=== PATIENT | male | born 1960 | race African-American/Black ===

== ENCOUNTER 2016-09-02 11:24 | Inpatient (IN) | payer MEDICARE, MEDICAID ==
[2016-09-02] VITALS (9 sets, daily range): BP systolic 110–146; BP diastolic 74–92
[~2016-09-02] VITALS: Ht 172.7 cm; Wt 51.0 kg
[~2016-09-02 11:24] MED LIST: ANTI-FUNGAL12 EX; DEXILANT60 MG OR; DILANTIN100 MG PO; DOCUSATE SOD100 M2 PO; FOLIC ACID1 MG PO; MIRALAX3350 NF PO; OMEPRAZOLE20 M2 PO; ONDANSETRON4 MG PO; VITAMIN B 12100 MCG PO; VITAMIN B-121000 MCG PO
[2016-09-02] MEDS ORDERED: COLACE100 MG PO ×2 (11:50→15:37)
[2016-09-02] MEDS ORDERED: LACTULOSE PO (11:51)
[2016-09-02 12:03] LABS: HEMATOCRIT 25.4 % (39.0-50.0); HEMOGLOBIN 7.3 g/dl (14.0-18.0); IMMATURE GRANULOCYTES 0.3 % (0.0-1.0); MEAN CELL VOLUME 74.5 fL CALC (80.0-100.0); MEAN CORPUSCULAR HGB 21.4 pG CALC (26.0-32.0); MEAN CORPUSCULAR HGB CONC 28.7 g/L CALC (32.0-36.0); NEUT# 8.09 thou/uL (1.82-7.42); RED BLOOD COUNT 3.41 mill/uL (4.70-6.10); RED CELL DISTRI WIDTH 17.9 % (11.5-15.5)
[2016-09-02 12:13] LABS: ALBUMIN 4.5 g/dL (3.2-5.0); ALKALINE PHOSPHATASE 106 u/l (38-126); AMYLASE 70 u/l (30-110); ANION GAP 16 (6-22 (CALC)); BILIRUBIN, TOTAL 0.3 mg/dL (0.0-1.4); BUN 10 mg/dL (9-20); BUN/CREATININE RATIO 13 (12-20 (CALC)); CALCIUM 9.4 mg/dL (8.4-10.2); CARBON DIOXIDE 28 mmol/l (22-30); CHLORIDE 102 mmol/l (95-108); CREATININE 0.8 mg/dL (0.7-1.3); GFR > 60 ML/MIN (>=60 (CALC)); GFR FOR AFR.AMER. > 60 ML/MIN (>=60 (CALC)); GLUCOSE 100 mg/dL (75-110); LIPASE 75 u/l (23-300); POTASSIUM 4.1 mmol/l (3.5-5.1); SGOT/AST 15 u/l (17-59); SGPT/ALT 23 u/l (21-72); SODIUM 142 mmol/l (137-146); TOTAL PROTEIN 7.7 g/dL (6.3-8.2)
[2016-09-02] MEDS ORDERED: EQ MAGNESIUM CI1 SOL PO (15:37)
[2016-09-02] MEDS ORDERED: MIRALAX3350 N1 PO (15:37)
[2016-09-03 01:28] LABS: HEMATOCRIT 32.2 % (39.0-50.0); HEMOGLOBIN 10.1 g/dl (14.0-18.0)
[2016-09-03 05:20] VITALS: BP 125/79
[2016-09-03 06:46] LABS: HEMOGLOBIN 9.8 g/dl (14.0-18.0)
[2016-09-03 06:47] LABS: HEMATOCRIT 31.8 % (39.0-50.0); HEMOGLOBIN 9.9 g/dl (14.0-18.0); IMMATURE GRANULOCYTES 0.4 % (0.0-1.0); MEAN CELL VOLUME 77.9 fL CALC (80.0-100.0); MEAN CORPUSCULAR HGB 24.3 pG CALC (26.0-32.0); MEAN CORPUSCULAR HGB CONC 31.1 g/L CALC (32.0-36.0); NEUT# 7.01 thou/uL (1.82-7.42); RED BLOOD COUNT 4.08 mill/uL (4.70-6.10); RED CELL DISTRI WIDTH 19.2 % (11.5-15.5)
[2016-09-03 07:06] LABS: ANION GAP 14 (6-22 (CALC)); BUN 11 mg/dL (9-20); BUN/CREATININE RATIO 14 (12-20 (CALC)); CALCIUM 8.9 mg/dL (8.4-10.2); CARBON DIOXIDE 28 mmol/l (22-30); CHLORIDE 105 mmol/l (95-108); CREATININE 0.7 mg/dL (0.7-1.3); GFR > 60 ML/MIN (>=60 (CALC)); GFR FOR AFR.AMER. > 60 ML/MIN (>=60 (CALC)); GLUCOSE 81 mg/dL (75-110); POTASSIUM 3.9 mmol/l (3.5-5.1); SODIUM 143 mmol/l (137-146)
[2016-09-03 08:30] VITALS: BP 154/90
[2016-09-03 11:00] VITALS: BP 144/84
[2016-09-03 15:01] VITALS: BP 145/91
[2016-09-03 17:51] LABS: HEMATOCRIT 34.1 % (39.0-50.0); HEMOGLOBIN 10.5 g/dl (14.0-18.0)
[2016-09-03 19:10] VITALS: BP 124/82
[2016-09-03 21:08] LABS: URINE BILIRUBIN - DIPSTICK NEGATIVE (NEGATIVE); URINE BLOOD DIPSTICK NEGATIVE (NEGATIVE); URINE CLARITY CLEAR; URINE COLOR YELLOW; URINE GLUCOSE - DIPSTICK NEGATIVE (NEGATIVE); URINE KETONE 15 mg/dL (NEGATIVE); URINE LEUK ESTERASE NEGATIVE (NEGATIVE); URINE NITRITE - DIPSTICK NEGATIVE (Negative); URINE PROTEIN - DIPSTICK NEGATIVE (NEG-TRACE)
[2016-09-04] VITALS: BP 137/83
[2016-09-04 04:27] VITALS: BP 118/72
[2016-09-04 06:13] LABS: HEMATOCRIT 32.7 % (39.0-50.0); IMMATURE GRANULOCYTES 0.3 % (0.0-1.0); MEAN CELL VOLUME 77.5 fL CALC (80.0-100.0); MEAN CORPUSCULAR HGB 23.7 pG CALC (26.0-32.0); MEAN CORPUSCULAR HGB CONC 30.6 g/L CALC (32.0-36.0); NEUT# 8.16 thou/uL (1.82-7.42); RED BLOOD COUNT 4.22 mill/uL (4.70-6.10); RED CELL DISTRI WIDTH 20.2 % (11.5-15.5)
[2016-09-04 06:28] LABS: ANION GAP 13 (6-22 (CALC)); BUN 9 mg/dL (9-20); BUN/CREATININE RATIO 14 (12-20 (CALC)); CALCIUM 8.8 mg/dL (8.4-10.2); CARBON DIOXIDE 27 mmol/l (22-30); CHLORIDE 104 mmol/l (95-108); CREATININE 0.7 mg/dL (0.7-1.3); GFR > 60 ML/MIN (>=60 (CALC)); GFR FOR AFR.AMER. > 60 ML/MIN (>=60 (CALC)); GLUCOSE 82 mg/dL (75-110); POTASSIUM 3.7 mmol/l (3.5-5.1); SODIUM 141 mmol/l (137-146)
[2016-09-04 09:41] VITALS: BP 110/77
[2016-09-04] MEDS ORDERED: FERROUS SULF325 M2 PO (12:25)
[2016-09-04] MEDS ORDERED: MIRALAX3350 NF PO (12:25)
[2016-09-04] MEDS ORDERED: COLACE100 MG PO (12:25)
[2016-09-04 13:00] VITALS: BP 117/78
== END 2016-09-04 14:14 | disposition short-term general hospital (02) | DRG 812 ==
LOC: ENPENDDIS → ED 11:24 → ED-I 15:40 → ED 16:30 → MS2 16:31
PROVIDERS: Emergency Medicine; Internal Medicine; ADMIT Internal Medicine; ATTEND Internal Medicine
PROC: 30233N1 Transfusion of Nonautologous Red Blood Cells into Peripheral Vein, Percutaneous Approach (ICD-10-PCS; principal; 2016-09-02)
PROC: 30233N1 Transfusion of Nonautologous Red Blood Cells into Peripheral Vein, Percutaneous Approach (ICD-10-PCS; 2016-09-02)
PROC: 05HB33Z Insertion of Infusion Device into Right Basilic Vein, Percutaneous Approach (ICD-10-PCS; 2016-09-02)
PROC: B54MZZA Ultrasonography of Right Upper Extremity Veins, Guidance (ICD-10-PCS; 2016-09-02)
DX: D50.9 Iron deficiency anemia, unspecified (principal); F72 Severe intellectual disabilities; K92.2 Gastrointestinal hemorrhage, unspecified; K59.09 Other constipation; G40.909 Epilepsy, unspecified, not intractable, without status epilepticus; K44.9 Diaphragmatic hernia without obstruction or gangrene
CPT/HCPCS: J1756; P9016; S0164

== ENCOUNTER 2016-11-08 10:29 | Day surgery (SDC) | payer MEDICARE, MEDICAID ==
[~2016-11-08] VITALS: Ht 167.6 cm; Wt 54.4 kg
[~2016-11-08 10:29] MED LIST changes: +COLACE100 MG PO; +EQ MAGNESIUM CI1 SOL PO; +FERROUS SULF325 M2 PO; +GAVILA1 PO; +LACTULOSE PO; +MIRALAX3350 N1 PO
[2016-11-08 13:15] VITALS: BP 127/78
== END 2016-11-08 13:35 | disposition home or self-care (01) ==
LOC: ENDO 10:29 → ORM 11:15 → ENDO 11:15
PROVIDERS: ATTEND Internal Medicine Gastroenterology
PROC: 0DB48ZX Excision of Esophagogastric Junction, Via Natural or Artificial Opening Endoscopic, Diagnostic (ICD-10-PCS; principal; 2016-11-08)
PROC: 0DB78ZX Excision of Stomach, Pylorus, Via Natural or Artificial Opening Endoscopic, Diagnostic (ICD-10-PCS; 2016-11-08)
PROC: 0DB98ZX Excision of Duodenum, Via Natural or Artificial Opening Endoscopic, Diagnostic (ICD-10-PCS; 2016-11-08)
DX: D50.9 Iron deficiency anemia, unspecified (principal); R11.2 Nausea with vomiting, unspecified; K31.7 Polyp of stomach and duodenum; K29.80 Duodenitis without bleeding; K29.50 Unspecified chronic gastritis without bleeding; K21.0 Gastro-esophageal reflux disease with esophagitis; K44.9 Diaphragmatic hernia without obstruction or gangrene; F79 Unspecified intellectual disabilities

== ENCOUNTER 2016-11-10 10:34 | Emergency (ER) | payer MEDICARE, MEDICAID ==
[~2016-11-10] VITALS: Ht 167.6 cm; Wt 64.0 kg
[2016-11-10] MEDS ORDERED: ZOFRAN ODT4 MG PO (11:12)
[2016-11-10 12:06] LABS: HEMATOCRIT 38.6 % (39.0-50.0); IMMATURE GRANULOCYTES 0.4 % (0.0-1.0); MEAN CELL VOLUME 83.2 fL CALC (80.0-100.0); MEAN CORPUSCULAR HGB 25.9 pG CALC (26.0-32.0); MEAN CORPUSCULAR HGB CONC 31.1 g/L CALC (32.0-36.0); NEUT# 16.36 thou/uL (1.82-7.42); RED BLOOD COUNT 4.64 mill/uL (4.70-6.10)
[2016-11-10 12:13] LABS: ALBUMIN 4.6 g/dL (3.2-5.0); ALKALINE PHOSPHATASE 130 u/l (38-126); AMYLASE 87 u/l (30-110); ANION GAP 18 (6-22 (CALC)); BILIRUBIN, TOTAL 0.9 mg/dL (0.0-1.4); BUN 21 mg/dL (9-20); BUN/CREATININE RATIO 34 (12-20 (CALC)); CALCIUM 9.1 mg/dL (8.4-10.2); CARBON DIOXIDE 25 mmol/l (22-30); CHLORIDE 101 mmol/l (95-108); CREATININE 0.6 mg/dL (0.7-1.3); GFR > 60 ML/MIN (>=60 (CALC)); GFR FOR AFR.AMER. > 60 ML/MIN (>=60 (CALC)); GLUCOSE 140 mg/dL (75-110); LIPASE 36 u/l (23-300); SGOT/AST 52 u/l (17-59); SGPT/ALT 7 u/l (21-72); SODIUM 139 mmol/l (137-146); TOTAL PROTEIN 8.4 g/dL (6.3-8.2)
[2016-11-10 12:15] LABS: POTASSIUM 5.2 mmol/l (3.5-5.1)
[2016-11-10 12:20] LABS: INTERNATIONAL NORMALIZED RATIO 1.1 RATIO (0.7-1.3); PROTHROMBIN TIME 12.6 SECONDS (9.0-12.5)
[2016-11-10 12:25] LABS: MYOGLOBIN 15 ng/mL (0 - 121)
[2016-11-10 14:10] VITALS: BP 120/76
== END 2016-11-10 14:10 | disposition short-term general hospital (02) ==
LOC: ED 10:34
PROVIDERS: Emergency Medicine
DX: K92.0 Hematemesis (principal); F79 Unspecified intellectual disabilities; K21.9 Gastro-esophageal reflux disease without esophagitis; G40.909 Epilepsy, unspecified, not intractable, without status epilepticus
CPT/HCPCS: S0164

== ENCOUNTER 2017-02-19 10:55 | Emergency (ER) | payer MEDICARE, MEDICAID ==
[~2017-02-19] VITALS: Ht 167.6 cm; Wt 48.2 kg
[~2017-02-19 10:55] MED LIST changes: +ZOFRAN ODT4 MG PO
[2017-02-19] MEDS ORDERED: COLACE100 MG PO (11:07)
[2017-02-19] MEDS ORDERED: LOTRISONE CREAM15 GM EX (11:50)
[2017-02-19 12:10] VITALS: BP 120/84
== END 2017-02-19 12:10 | disposition home or self-care (01) ==
LOC: ED 10:55
DX: B36.9 Superficial mycosis, unspecified (principal); N48.89 Other specified disorders of penis; Z98.890 Other specified postprocedural states

== ENCOUNTER 2017-02-26 09:08 | Emergency (ER) | payer MEDICARE, MEDICAID ==
[~2017-02-26] VITALS: Ht 167.6 cm; Wt 48.0 kg
[~2017-02-26 09:08] MED LIST changes: +LOTRISONE CREAM15 GM EX
[2017-02-26 09:53] VITALS: BP 127/84
== END 2017-02-26 09:57 | disposition home or self-care (01) ==
LOC: ED 09:08
DX: B37.49 Other urogenital candidiasis (principal); N48.29 Other inflammatory disorders of penis

== ENCOUNTER 2017-05-01 12:14 | Emergency (ER) | payer MEDICARE, MEDICAID ==
[~2017-05-01] VITALS: Ht 167.6 cm; Wt 40.0 kg
[2017-05-01] MEDS ORDERED: PANTOPRAZOLE SO40 MG PO (14:08)
[2017-05-01 14:35] LABS: INFLUENZA A NONE DETECTED (NONE DETECT); INFLUENZA B NONE DETECTED (NONE DETECT)
[2017-05-01 14:39] LABS: IMMATURE GRANULOCYTES 0.4 % (0.0-1.0); MEAN CELL VOLUME 66.7 fL CALC (80.0-100.0); MEAN CORPUSCULAR HGB 18.2 pG CALC (26.0-32.0); MEAN CORPUSCULAR HGB CONC 27.3 g/L CALC (32.0-36.0); PLATELET COUNT 349 thou/uL (130-400); RED BLOOD COUNT 2.97 mill/uL (4.70-6.10); RED CELL DISTRI WIDTH 18.2 % (11.5-15.5)
[2017-05-01 14:59] LABS: HEMATOCRIT 19.8 % (39.0-50.0); HEMOGLOBIN 5.4 g/dl (14.0-18.0)
[2017-05-01 15:00] LABS: ALBUMIN 3.8 g/dL (3.2-5.0); ALKALINE PHOSPHATASE 144 u/l (38-126); ANION GAP 15 (6-22 (CALC)); BUN 15 mg/dL (9-20); BUN/CREATININE RATIO 24 (12-20 (CALC)); CARBON DIOXIDE 27 mmol/l (22-30); CHLORIDE 102 mmol/l (95-108); CREATININE 0.6 mg/dL (0.7-1.3); GFR > 60 ML/MIN (>=60 (CALC)); GFR FOR AFR.AMER. > 60 ML/MIN (>=60 (CALC)); LIPASE 148 u/l (23-300); MANUAL DIFFERENTIAL YES; POTASSIUM 4.2 mmol/l (3.5-5.1); SGOT/AST 18 u/l (17-59); SGPT/ALT 24 u/l (21-72); SODIUM 140 mmol/l (137-146); TOTAL PROTEIN 6.6 g/dL (6.3-8.2)
[2017-05-01 15:01] LABS: HYPOCHROMIA MARKED; MICROCYTOSIS MODERATE
[2017-05-01 15:02] LABS: ANISOCYTOSIS MODERATE
[2017-05-01 17:03] VITALS: BP 109/73
[2017-05-01 17:50] VITALS: BP 111/73
[2017-05-01 19:03] VITALS: BP 107/78
[2017-05-01 19:16] VITALS: BP 107/78
== END 2017-05-01 19:16 | disposition short-term general hospital (02) ==
LOC: ED 12:14
PROVIDERS: Family Medicine
PROC: 30233N1 Transfusion of Nonautologous Red Blood Cells into Peripheral Vein, Percutaneous Approach (ICD-10-PCS; principal; 2017-05-01)
DX: K92.2 Gastrointestinal hemorrhage, unspecified (principal); G40.909 Epilepsy, unspecified, not intractable, without status epilepticus; R62.50 Unspecified lack of expected normal physiological development in childhood; D64.9 Anemia, unspecified
CPT/HCPCS: P9016; S0164

== ENCOUNTER 2017-10-10 09:43 | Day surgery (SDC) | payer MEDICARE, MEDICAID ==
[~2017-10-10 09:43] MED LIST changes: +FERREX 150150 MG PO; +PANTOPRAZOLE SO40 MG PO
[2017-10-10] MEDS ORDERED: FERREX 150150 MG PO (10:29)
[2017-10-10] MEDS ORDERED: GLYCOLAX PO (10:30)
[2017-10-10] MEDS ORDERED: ENSURE PO (10:31)
[2017-10-10 12:58] VITALS: BP 101/85
== END 2017-10-10 12:30 | disposition short-term general hospital (02) ==
LOC: ENDO 09:43 → ORM 11:30 → ENDO 12:05
PROVIDERS: ATTEND Internal Medicine Gastroenterology
PROC: 0DB48ZX Excision of Esophagogastric Junction, Via Natural or Artificial Opening Endoscopic, Diagnostic (ICD-10-PCS; principal; 2017-10-10)
DX: D50.9 Iron deficiency anemia, unspecified (principal); R63.4 Abnormal weight loss; K29.70 Gastritis, unspecified, without bleeding; K21.0 Gastro-esophageal reflux disease with esophagitis; K44.9 Diaphragmatic hernia without obstruction or gangrene; K31.89 Other diseases of stomach and duodenum; F79 Unspecified intellectual disabilities; K31.7 Polyp of stomach and duodenum

== ENCOUNTER 2019-04-12 | Emergency (ER) | payer MEDICARE, MEDICAID ==
[~2019-04-12] MED LIST changes: +ENSURE PO; +GLYCOLAX PO; +PANTOPRAZOLE SO20 M1 PO; -PANTOPRAZOLE SO40 MG PO
[2019-04-12 13:02] LABS: IMMATURE GRANULOCYTES 0.4 % (0.0-5.0); MEAN CELL VOLUME 76.5 fL CALC (80.0-100.0); MEAN CORPUSCULAR HGB 20.6 pG CALC (26.0-32.0); MEAN CORPUSCULAR HGB CONC 26.9 g/L CALC (32.0-36.0); NEUT# 4.9 thou/uL (1.82-7.42); RED BLOOD COUNT 2.38 mill/uL (4.70-6.10); RED CELL DISTRI WIDTH 19.9 % (11.5-15.5)
[2019-04-12 13:09] LABS: HEMATOCRIT 18.2 % (39.0-50.0); HEMOGLOBIN 4.9 g/dl (14.0-18.0)
[2019-04-12 13:14] LABS: ALBUMIN 3.8 g/dL (3.2-5.0); ALKALINE PHOSPHATASE 129 u/l (38-126); ANION GAP 14 (6-22 (CALC)); BILIRUBIN, TOTAL 0.2 mg/dL (0.0-1.4); BUN 14 mg/dL (9-20); BUN/CREATININE RATIO 22 (12-20 (CALC)); CARBON DIOXIDE 26 mmol/l (22-30); CHLORIDE 102 mmol/l (95-108); CREATININE 0.6 mg/dL (0.7-1.3); GFR > 60 ML/MIN (>=60 (CALC)); GFR FOR AFR.AMER. > 60 ML/MIN (>=60 (CALC)); POTASSIUM 3.8 mmol/l (3.5-5.1); SGOT/AST 15 u/l (17-59); SODIUM 138 mmol/l (137-146); TOTAL PROTEIN 7.1 g/dL (6.3-8.2)
[2019-04-12 13:19] LABS: INTERNATIONAL NORMALIZED RATIO 1.2 RATIO (0.7-1.3); PROTHROMBIN TIME 12.3 SECONDS (9.0-12.5)
[2019-04-12 14:49] VITALS: BP 112/56
[2019-04-12 15:05] VITALS: BP 121/79
[2019-04-12 15:24] VITALS: BP 108/67
[2019-04-12 16:01] VITALS: BP 107/73
[2019-04-12 17:05] VITALS: BP 113/63
[2019-04-12 17:25] VITALS: BP 113/63
[2019-05-14] MEDS ORDERED: ENSURE PO (11:42)
[2019-05-14] MEDS ORDERED: INJECTAFER750 MG/15 IJ (11:51)
== END 2019-04-12 17:30 | disposition short-term general hospital (02) ==
PROVIDERS: Emergency Medicine
PROC: 30233N1 Transfusion of Nonautologous Red Blood Cells into Peripheral Vein, Percutaneous Approach (ICD-10-PCS; principal; 2019-04-12)
PROC: 30233N1 Transfusion of Nonautologous Red Blood Cells into Peripheral Vein, Percutaneous Approach (ICD-10-PCS; 2019-04-12)
DX: K92.2 Gastrointestinal hemorrhage, unspecified (principal); D50.0 Iron deficiency anemia secondary to blood loss (chronic); G40.909 Epilepsy, unspecified, not intractable, without status epilepticus; R62.50 Unspecified lack of expected normal physiological development in childhood; E78.00 Pure hypercholesterolemia, unspecified
CPT/HCPCS: P9016; S0164

== ENCOUNTER 2019-05-21 | Day surgery (SDC) | payer MEDICARE, MEDICAID ==
[~2019-05-21] MED LIST changes: +INJECTAFER750 MG/15 IJ
== END 2019-05-21 12:37 | disposition home or self-care (01) ==
PROC: 0DBN8ZX Excision of Sigmoid Colon, Via Natural or Artificial Opening Endoscopic, Diagnostic (ICD-10-PCS; principal; 2019-05-21)
PROC: 0DB48ZX Excision of Esophagogastric Junction, Via Natural or Artificial Opening Endoscopic, Diagnostic (ICD-10-PCS; 2019-05-21)
PROC: 0DB78ZX Excision of Stomach, Pylorus, Via Natural or Artificial Opening Endoscopic, Diagnostic (ICD-10-PCS; 2019-05-21)
DX: D12.5 Benign neoplasm of sigmoid colon (principal); K64.8 Other hemorrhoids; K64.4 Residual hemorrhoidal skin tags; K21.0 Gastro-esophageal reflux disease with esophagitis; Q39.9 Congenital malformation of esophagus, unspecified; K29.61 Other gastritis with bleeding; Q40.2 Other specified congenital malformations of stomach; K44.9 Diaphragmatic hernia without obstruction or gangrene; Q39.8 Other congenital malformations of esophagus; D50.9 Iron deficiency anemia, unspecified; F03.90 Unspecified dementia, unspecified severity, without behavioral disturbance, psychotic disturbance, mood disturbance, and anxiety; Z79.899 Other long term (current) drug therapy

== ENCOUNTER 2019-10-19 11:14 | Inpatient (IN) | payer MEDICARE, MEDICAID ==
[~2019-10-19] VITALS: Ht 167.6 cm; Wt 52.0 kg
--- NOTE | 2019-10-19 11:19 | NUR ---
PT TO ROOM VIA WC WITH CAREGIVER
[2019-10-19 12:14] LABS: HEMATOCRIT 36.3 % (39.0-50.0); IMMATURE GRANULOCYTES 0.7 % (0.0-5.0); MEAN CELL VOLUME 89.2 fL CALC (80.0-100.0); MEAN CORPUSCULAR HGB CONC 30.3 g/dL CAL (32.0-36.0); NEUT# 12.99 thou/uL (1.82-7.42); RED BLOOD COUNT 4.07 mill/uL (4.70-6.10); RED CELL DISTRI WIDTH 20.5 % (11.5-15.5)
--- NOTE | 2019-10-19 12:19 | NUR ---
PT IS RESTING IN ROOMON STRETCHER. NO DISTRESS NOTED
[2019-10-19 12:29] LABS: ALBUMIN 3.9 g/dL (3.2-5.0); ALKALINE PHOSPHATASE 174 u/l (38-126); BUN 16 mg/dL (9-20); BUN/CREATININE RATIO 13 (12-20 (CALC)); CARBON DIOXIDE 27 mmol/l (22-30); CHLORIDE 103 mmol/l (95-108); CREATININE 1.3 mg/dL (0.7-1.3); GFR 56 ML/MIN (>=60 (CALC)); GFR FOR AFR.AMER. > 60 ML/MIN (>=60 (CALC)); SODIUM 138 mmol/l (137-146); TOTAL PROTEIN 7.5 g/dL (6.3-8.2)
[2019-10-19 12:48] LABS: ANION GAP 12 (6-22 (CALC)); BILIRUBIN, TOTAL 0.5 mg/dL (0.0-1.4); C-REACTIVE PROTEIN > 27.0 mg/dL (0-0.9); POTASSIUM 3.5 mmol/l (3.5-5.1); SGOT/AST 43 u/l (17-59)
--- NOTE | 2019-10-19 13:10 | NUR ---
PT IS RESTING IN ROOM. CAREGIVER IS AWARE OF THE POSSIBLE ADMISSION. NO DISTRESS NOTED.
--- NOTE | 2019-10-19 14:10 | NUR ---
PT IS RESTING AND CALM. NO DISTRESS NOTED
--- NOTE | 2019-10-19 15:10 | NUR ---
PT IS RESTING AND CALM.
--- NOTE | 2019-10-19 15:59 | NUR ---
Admission Note Report Given to: SYLVESTER Transported by: Wheelchair X Stretcher Transported with: X Nurse Transporter X Patent IV O2 Supervisor Landscape Location: ICU X MS2
--- NOTE | 2019-10-19 16:15 | NUR ---
PT ARRIVED TO MED/SURG ROOM 285 IN STABLE CONDITION VIA STRETCHER ACCOMPANIED BY JUANJOSE PENA;PT AMBULATED WITH X2 PERSON ASSIST TO BEDSIDE;VS AND WT OBTAINED BY HAYLEY CHAPARRO;CURRENT TEMP 104.0 AND PT NOTED TO BE AGITATED,[place] ANRP NOTIFIED;PT DOES HAVE SOME DEVELOPMENTAL DELAYS;PT NON-VERBAL BUT WILL SHAKE HEAD "YES" OR "NO" WHEN ASKED QUESTIONS;PT DENIES ANY CURRENT PAIN,PAIN SCALE AND REPORTING EDUCATED;RESPIRATIONS SHALLOW ON RA,DIMINISHED LUNG SOUNDS NOTED;NON-PRODUCTIVE COUGH ALSO NOTED AT TIMES;ABDOMEN DISTENDED/SOFT ON PALPATION AND ACTIVE IN ALL 4 QUADRANTS, LAST BM UNKNOWN;WEAK PEDAL PULSES;SKIN INTACT;#20G TO LAC FLUSHED AND PATENT, NS STARTED @ 100ML/HR,SITE APPEARS HEALTHY;SEIZURE PRECAUTIONS IN PLACE FOR HX OF SEIZURES;CONDOM CATHETER APPLIED PER ANRP;PT DENIES ANY ADDITIONAL NEEDS AT THIS TIME AND IS ENCOURAGED TO CALL FOR ASSISTANCE IF NEEDED;FALL PRECAUTIONS IN PLACE WITH BED IN THE LOWEST POSITION,BED ALARM ON AND SITTER AT BEDSIDE;CALL LIGHT IN REACH;WILL CONTINUE TO MONITOR
[2019-10-19 16:30] VITALS: BP 116/73
--- NOTE | 2019-10-19 17:50 | NUR ---
TEMP RE-CHECKED AT THIS TIME RESULTING IN 100.7;PT SEEMS CALMER AND MORE RELAXED;RESPIRATIONS REMAIN EVEN AND UNLABORED ON RA;PT NODS HEAD "NO" WHEN ASKED ABOUT PAIN;IV FLUIDS CONTINUE TO INFUSE WITH EASE TO RAC;ALL SAFETY PRECAUTIONS IN PLACE WITH SITTER AT BEDSIDE AND BED ALARM ON FOR SAFETY;CALL LIGHT IN REACH;WILL CONTINUE TO MONITOR
[2019-10-19 18:37] LABS: URINE BILIRUBIN - DIPSTICK NEGATIVE (NEGATIVE); URINE BLOOD DIPSTICK MODERATE (NEGATIVE); URINE COLOR YELLOW; URINE GLUCOSE - DIPSTICK NEGATIVE (NEGATIVE); URINE KETONE NEGATIVE (NEGATIVE); URINE NITRITE - DIPSTICK NEGATIVE (Negative); URINE PROTEIN - DIPSTICK 30 mg/dL (NEG-TRACE); URINE SPECIFIC GRAVITY >=1.030; URINE UROBILINOGEN - DIPSTICK 0.2 E.U./dL (0.2)
[2019-10-19 18:40] LABS: URINE LEUK ESTERASE SMALL (NEGATIVE)
[2019-10-19 18:45] LABS: URINE WBC 50-100 WBC/hpf (0-5)
[2019-10-19 19:30] VITALS: BP 153/70
--- NOTE | 2019-10-20 03:35 | NUR ---
PT IN BED WITH EYES OPEN. NOT ABLE TO VERBALIZE NEEDS BUT LOOKS AT YOU WHEN NAME IS CALLED. RESPIRATIONS ARE EVEN AND NONLABORED. NON PRODUCTIVE COUGH NOTED. TEMPT CHECKED AND 100.4. GIVEN TYLENOL PRN. REPOSITIONED IN BED AND TOLERATED WELL. PT NOTED WITH LOOSE STOOLS X 2 THAT WAS DARK BLACK IN COLOR. SUDHIR CATH IN PLACE AND DRAINING ADAM COLORED URINE. IV SITE CHANGED TO RIGHT ARM DUE TO PT PULLED PREVIOUS IV SITE OUT. FLUIDS GIVEN BY MOUTH AND TOLERATED WELL QAND NO SWALLOWING DIFFICULTIES NOTED. WILL CONTINUE TO OBSERVE
[2019-10-20 04:00] VITALS: BP 120/68
[2019-10-20 05:51] LABS: HEMATOCRIT 30.6 % (39.0-50.0); HEMOGLOBIN 9.4 g/dl (14.0-18.0); MEAN CELL VOLUME 88.4 fL CALC (80.0-100.0); MEAN CORPUSCULAR HGB 27.2 pG CALC (26.0-32.0); MEAN CORPUSCULAR HGB CONC 30.7 g/dL CAL (32.0-36.0); RED BLOOD COUNT 3.46 mill/uL (4.70-6.10); RED CELL DISTRI WIDTH 20.4 % (11.5-15.5)
[2019-10-20 06:22] LABS: BUN 13 mg/dL (9-20); BUN/CREATININE RATIO 13 (12-20 (CALC)); CHLORIDE 111 mmol/l (95-108); GFR > 60 ML/MIN (>=60 (CALC)); GFR FOR AFR.AMER. > 60 ML/MIN (>=60 (CALC)); POTASSIUM 3.7 mmol/l (3.5-5.1); SODIUM 138 mmol/l (137-146)
[2019-10-20 06:41] LABS: ANION GAP 10 (6-22 (CALC)); C-REACTIVE PROTEIN > 27.0 mg/dL (0-0.9); CARBON DIOXIDE 21 mmol/l (22-30)
--- NOTE | 2019-10-20 07:05 | NUR ---
REPORT RECEIVED FROM JUANJOSE JONES
--- NOTE | 2019-10-20 07:42 | NUR ---
PT IN BED WITH EYES OPEN AND NOT ABLE TO VERBALIZE NEEDS. PT TEMPT ELEVATED EARLY THIS AM 100.4. WAS GIVEN TYLENOL AND RECHECKED TEMPT AND 98.6. PT IV INTACT TO PT TOLERATING FLUIDS WELL. REPOSITIONED IN BED DURING THE NIGHT. CONTINUES TO 1:1 SUPERVISION FOR SAFETY. BED IN LOW POSITION. WILL CONTINUE TO OBSERVE
--- NOTE | 2019-10-20 08:18 | NUR ---
Patient screened for rehab intervention and it is felt not to be needed at this time
--- NOTE | 2019-10-20 08:40 | NUR ---
PT RESTING IN SEMI FOWLERS POSITION WITH HAYLEY VAIL AT BEDSIDE ASSISTING WITH MEAL TRAY;VS OBTAINED AND ASSESSMENT COMPLETED, PT IS NOTED TO BE NON-VERBAL BUT WILL NOD HEAD "YES: OR "NO" TO SIMPLE QUESTIONS AT TIMES;PT DENIES ANY CURRENT PAIN OR DISCOMFORTS,PAIN SCALE AND REPORTING EDUCATED;RESPIRATIONS EVEN AND UNLABORED,SHALLOW ON RA WITH DIMINISHED LUNG SOUNDS;NON-PRODUCTIVE COUGH NOTED AT TIMES;ABDOMEN DISTENDED/SOFT ON PALPATION AND ACTIVE IN ALL 4 QUADRANTS;CONDOM CATHETER REMAINS IN PLACE DRAINING YELLOW URINE WITH EASE;WEAK PEDAL PULSES;SKIN INTACT;#20G TO RFA INFUSING NS @ 100ML/HR,SITE APPEARS HEALTHY;PT REMAINS IN AIR/CONTACT PRECAUTIONS AT THIS TIME UNTIL PCR NASAL SWAB RESULTING;PT DENIES ANY ADDITIONAL NEEDS AT THIS TIME;FALL AND SEIZURE PRECAUTIONS IN PLACE;BED ALARM ON AND SITTER TO REMAIN AT BEDSIDE;CALL LIGHT IN REACH;WILL CONTINUE TO MONITOR
[2019-10-20 08:41] VITALS: BP 104/67
--- NOTE | 2019-10-20 10:52 | NUR ---
MULTIPLE ATTEMPS MADE TO OBTAIN A #20G TO EITHER AC FOR ORDERED CTA UNSUCCESSFUL BY THIS WRITTER.OTHER STAFF MEMBERS TO ATTEMPT IV SITE;WILL CONTINUE TO MONITOR
--- NOTE | 2019-10-20 11:45 | NUR ---
#20G TO RAC STARTED BY JUANJOSE SCRUGGS ON FIRST ATTEMPT,PT TOLERATED WELL.
--- NOTE | 2019-10-20 12:00 | NUR ---
PT RESTING IN SEMI FOWLERS POSITION;RESPIRATIONS REMAIN EVEN AND UNLABORED ON RA;NO S/S OF DISTRESS NOTED;IV FLUIDS INFUSING WITH EASE TO RFA PER ORDER;CONDOM CATHETER DRAINING TO GRAVITY WITH EASE;AWAITING CT FOR ORDERED CTA;ASSESSMENT REMAINS UNCHANGED;ENCOURAGED TO CALL FOR ASSISTANCE IF NEEDED;SEIZURE PRECAUTIONS AND FALL PRECAUTIONS IN PLACED;BED ALARM ON FOR SAFETY AND SITTER AT BEDSIDE;CALL LIGHT IN REACH;WILL CONTINUE TO MONITOR
--- NOTE | 2019-10-20 13:00 | NUR ---
PT TRANSPORTED TO [facility] IN STABLE CONDIITON VIA WHEELCHAIR ACCOMPANIED BY HAYLEY VAIL.
--- NOTE | 2019-10-20 13:45 | NUR ---
PT TRANSPORTED BACK TO MED.SURG ROOM 285 IN STABLE CONDITION VIA WHEELCHAIR ACCOMPANIED BY HAYLEY VAIL
--- NOTE | 2019-10-20 14:07 | NUR ---
S: BOLA SIMON is a 59 M who presents with Sepsis. He has a history of siezure disorder developmental delayed, gerd, and iron deficiency anemia. All medications in patient's chart were reviewed. O: VS: BP 104/67 mmHg, P 94 bpm, RR 18 breaths/min, T 98.4 F W 52 kg, HT 167.64 cm, Scr= 1 mg/dL, CrCl= 58.2 ml/min A: Blood culture is pending. Urine culture is pending. P: Patient is on Zosyn 3.375g IV Q6H. Vancomycin ordered for pharmacy to dose. Start Vancomycin 1000 mg IV Q24H. Vancomycin trough is drawn before the 4th dose on 10/23/2019 0000. Vancomycin goal trough is between 15-20 mcg/ml. Pharmacy will follow and or advise on antibiotics use as needed.
--- NOTE | 2019-10-20 16:00 | NUR ---
PT APPEARS TO BE SLEEPING IN SEMI FOWLERS POSITION;RESPIRATIONS EVEN AND UNLABORED ON RA;NO S/S OF DISTRESS NOTED;IV FLUIDS CONTINUE TO INFUSE WITH EASE PER ORDER;CONDOM CATHETER REMAINS PATENT DRAINING TO GRAVITY WITH EASE;BED ALARM ACTIVE WITH SITTER AT BEDSIDE;CALL LIGHT IN REACH;WILL CONTINUE TO MONITOR
[2019-10-20] MEDS ORDERED: FOLIC ACID1 MG PO (16:32)
[2019-10-20] MEDS ORDERED: DILANTIN100 MG PO (16:33)
[2019-10-20] MEDS ORDERED: COLACE100 MG PO (16:34)
[2019-10-20] MEDS ORDERED: MIRALAX3350 NF PO (16:35)
[2019-10-20] MEDS ORDERED: PROTONIX40 M2 PO (16:35)
[2019-10-20 16:45] VITALS: BP 127/69
--- NOTE | 2019-10-20 19:05 | NUR ---
REPORT FROM FITZ MONCADA. PT NOTED RESTING IN BED. PT ALERT TO SELF BUT NONVERBAL. NO APPARENT DISTRESS NOTED. IV SITES APPEARS HEALTHY. PT TOLERATING WELL. PT NO APPARENT S/S OF PAIN OR DISCOMFORT. NO APPARENT RESPIRATORY DISTRESS NOTED, ON RA. DISCUSSED POC. CALL LIGHT WITHIN REACH, SITTER PRESENT. WILL CONTINUE TO MONITOR.
[2019-10-20 19:46] VITALS: BP 102/67
--- NOTE | 2019-10-20 20:29 | NUR ---
PT REMOVED RFA IV SITE, CATH INTACT. RAC IV SITE REMAINS IN PLACE, FLUSHED WELL. PT MEDICATED ORDERED. PT JUST CHANGED AND REPOSITIONED BY BUSINESS JOB TITLES. PT TOLERATED WELL. MANAGER TRANSITION TURNED TV ON FOR PT AT THIS TIME AND OFFERED ORAL FLUIDS. CALL LIGHT WITHIN REACH, SITTER PRESENT. WILL CONTINUE TO MONITOR.
[2019-10-21 00:25] VITALS: BP 107/76
--- NOTE | 2019-10-21 00:41 | NUR ---
DUPLICATE VANCO ORDER ON MAY. ORDERS CLARIFIED WITH SERA AT PHARMACY. WILL ADMINISTER 0030 DOSE, DUPLICATE ORDER DISCONTINUED. PT RESTING IN BED. NO APPARENT DISTRESS NOTED. CALL LIGHT WITHIN REACH, SITTER PRESENT. WILL CONTINUE TO MONITOR.
[2019-10-21 04:13] VITALS: BP 133/85
--- NOTE | 2019-10-21 04:13 | NUR ---
PT RESTING IN BED. NO APPARENT DISTRESS NOTED. IVF INFUSING WITHOUT DIFFICULTY. SITTER PRESENT. CALL LIGHT WITHIN REACH. WILL CONTINUE TO MONITOR.
[2019-10-21 05:28] LABS: HEMATOCRIT 31.4 % (39.0-50.0); HEMOGLOBIN 9.9 g/dl (14.0-18.0); MEAN CELL VOLUME 86.5 fL CALC (80.0-100.0); MEAN CORPUSCULAR HGB 27.3 pG CALC (26.0-32.0); MEAN CORPUSCULAR HGB CONC 31.5 g/dL CAL (32.0-36.0); RED BLOOD COUNT 3.63 mill/uL (4.70-6.10); RED CELL DISTRI WIDTH 20.4 % (11.5-15.5)
[2019-10-21 05:50] LABS: ANION GAP 7 (6-22 (CALC)); BUN 10 mg/dL (9-20); BUN/CREATININE RATIO 12 (12-20 (CALC)); CARBON DIOXIDE 25 mmol/l (22-30); CHLORIDE 113 mmol/l (95-108); CREATININE 0.9 mg/dL (0.7-1.3); GFR > 60 ML/MIN (>=60 (CALC)); GFR FOR AFR.AMER. > 60 ML/MIN (>=60 (CALC)); MAGNESIUM 2.2 mg/dL (1.6-2.3); POTASSIUM 3.9 mmol/l (3.5-5.1); SODIUM 141 mmol/l (137-146)
--- NOTE | 2019-10-21 07:05 | NUR ---
REPORT RECEIVED FROM ANTWAN RUSHING.
--- NOTE | 2019-10-21 07:48 | NUR ---
PRELIM BLOOD CX RESULTS SHOW GRAM NEGATIVE RODS. DR HASSAN INCREASED ZOSYN DOSE TO 4.5G IV Q6H. NO FURTHER CHANGES RECOMMENDED
[2019-10-21 07:57] VITALS: BP 140/88
--- NOTE | 2019-10-21 08:00 | NUR ---
PT RESTING IN SEMI FOWLERS POSITION,PT IS NOTED TO BE NON-VERBAL BUT WILL NOD HEAD "YES" OR "NO" TO SIMPLE QUESTIONS;VS OBTAINED AND ASSESSMENT COMPLETED;PT DENIES ANY CURRENT PAIN OR DISCOMFORTS,PAIN SCALE AND REPORTING EDUCATED;RESPIRATIONS EVEN AND UNLABORED ON RA,DIMINISHED LUNG SOUNDS AND NON-PRODUCTIVE COUGH NOTED AT TIMES;ABDOMEN SOFT ON PALPATION AND ACTIVE IN ALL 4 QUADRANTS;WEAK PEDAL PULSES;SKIN INTACT;#20G TO RAC INFUSING NS @ 100ML/HR,SITE APPEARS HEALTHY;SEIZURE PRECAUTIONS IN PLACE;PT REMAINS IN AIR/CONTACT PRECAUTIONS DUE TO PENDING COVID19 TESTING;ALL SAFETY PRECAUTIONS IN PLACE WITH BED IN THE LOWEST POSITION,BED ALARM ON FOR SAFETY AND SITTER AT BEDSIDE;CALL LIGHT IN REACH;WILL CONTINUE TO MONITOR
--- NOTE | 2019-10-21 11:35 | NUR ---
PT RESTING IN SEMI FOWLERS POSITION,IN AND OUT OF SLEEP, WITH SITER AT BEDSIDE;RESPIRATIONS EVEN AND UNLABORED ON RA;PT DENIES ANY CURRENT PAIN OR NEEDS;IV SITE PATENT INFUSING NS PER ORDER,ABX HUNG AT THIS TIME;ASSESSMENT REMAINS UNCHANGED;FALL AND SEIZURE PRECAUTIONS IN PLACE;CALL LIGHT IN REACH;WILL CONTINUE TO MONITOR
[2019-10-21 15:30] VITALS: BP 103/60
--- NOTE | 2019-10-21 15:30 | NUR ---
PT RESTING IN SEMI FOWLERS POSITION;RESPIRATIONS EVEN AND UNLABORED ON RA;PT DENIES ANY CURRENT PAIN OR NEEDS;IV FLUIDS INFUSING TO RAC PER ORDER;DREW,CAREGIVER UPDATED ON PT STATUS;ALL SAFETY PRECAUTIONS REMAIN PLACE WITH BED IN THE LOWEST POSITION,BED ALARM,SEIZURE PRECAUTION AND SITTER AT BEDSIDE;CALL LIGHT IN REACH;WILL CONTINUE TO MONITOR
[2019-10-21 19:58] VITALS: BP 122/54
--- NOTE | 2019-10-21 20:52 | NUR ---
PT MEDICATED ORDERED. ASSESSMENT COMPLETE. NO APPARENT PAIN OR DISCOMFORT. NO RESPIRATORY DISTRESS NOTED. SITTER PRESENT. CALL LIGHT WITHIN REACH. WILL CONTINUE TO MONITOR.
--- NOTE | 2019-10-22 00:03 | NUR ---
PT RESTING IN BED WITH EYES CLOSED. NO APPARENT DISTRESS NOTED. CALL LIGHT WITHIN REACH. WILL CONTINUE TO MONITOR.
--- NOTE | 2019-10-22 04:11 | NUR ---
PT RESTING IN BED. NO APPARENT DISTRESS NOTED. IVF INFUSING WITHOUT DIFFICULTY. SITTER PRESENT. CALL LIGHT WITHIN REACH. WILL CONTINUE TO MONITOR.
[2019-10-22 04:43] VITALS: BP 136/85
[2019-10-22 07:42] LABS: HEMATOCRIT 30.4 % (39.0-50.0); HEMOGLOBIN 9.4 g/dl (14.0-18.0); IMMATURE GRANULOCYTES 0.5 % (0.0-5.0); MEAN CELL VOLUME 87.4 fL CALC (80.0-100.0); MEAN CORPUSCULAR HGB CONC 30.9 g/dL CAL (32.0-36.0); NEUT# 4.56 thou/uL (1.82-7.42); RED BLOOD COUNT 3.48 mill/uL (4.70-6.10)
[2019-10-22 07:59] LABS: ALKALINE PHOSPHATASE 115 u/l (38-126); ANION GAP 7 (6-22 (CALC)); BILIRUBIN, TOTAL 0.3 mg/dL (0.0-1.4); BUN 8 mg/dL (9-20); BUN/CREATININE RATIO 11 (12-20 (CALC)); CARBON DIOXIDE 24 mmol/l (22-30); CHLORIDE 116 mmol/l (95-108); CREATININE 0.8 mg/dL (0.7-1.3); GFR > 60 ML/MIN (>=60 (CALC)); GFR FOR AFR.AMER. > 60 ML/MIN (>=60 (CALC)); POTASSIUM 3.5 mmol/l (3.5-5.1); SGOT/AST 19 u/l (17-59); SODIUM 143 mmol/l (137-146)
[2019-10-22 08:20] LABS: ALBUMIN 2.5 g/dL (3.2-5.0); TOTAL PROTEIN 5.4 g/dL (6.3-8.2)
[2019-10-22 09:35] VITALS: BP 129/87
--- NOTE | 2019-10-22 09:35 | NUR ---
PT LAYING IN BED. A&O TO VERBAL STIMULUS. PT NON VERBAL. NO PHYSICAL SIGNS OF DESTRESS NOTED. SITTER AT BEDSIDE. PT CURRENTLY RA AND AFEBRILE. ASSESSMENT COMPLETED. DISCUSSED POC. ISOLATION PRECAUTIONS IN PLACE. CALL LIGHT IN REACH. CONTINUE TO MONITOR.
--- NOTE | 2019-10-22 12:20 | NUR ---
PT SITTING IN BED WATCHING TV. NO DISTRESS NOTED. CONTINUE TO MONITOR.
--- NOTE | 2019-10-22 15:45 | NUR ---
PT SLEEPING IN BED. NO DISTRESS NOTED. RESP EVEN AND UNLABORED. CONTINUE TO MONITOR.
[2019-10-22 16:00] VITALS: BP 121/81
--- NOTE | 2019-10-22 19:10 | NUR ---
REPORT FROM JESSICA MONCADA. PT NOTED RESTING IN BED. PT ALERT TO SELF BUT NONVERBAL. NO APPARENT DISTRESS NOTED. IV SITES APPEARS HEALTHY. PT TOLERATING WELL. PT NO APPARENT S/S OF PAIN OR DISCOMFORT. NO APPARENT RESPIRATORY DISTRESS NOTED, ON RA. DISCUSSED POC. CALL LIGHT WITHIN REACH, SITTER PRESENT. WILL CONTINUE TO MONITOR.
--- NOTE | 2019-10-22 20:32 | NUR ---
PT MEDICATED ORDERED. ASSESSMENT COMPLETE. NO APPARENT PAIN OR DISCOMFORT. NO RESPIRATORY DISTRESS NOTED. SITTER PRESENT. CALL LIGHT WITHIN REACH. WILL CONTINUE TO MONITOR.
[2019-10-22 20:36] VITALS: BP 115/76
--- NOTE | 2019-10-23 00:40 | NUR ---
PT RESTING IN BED. NO APPARENT DISTRESS NOTED. IV ABT INFUSING WITHOUT DIFFICULTY. SITTER PRESENT. CALL LIGHT WITHIN REACH. WILL CONTINUE TO MONITOR.
--- NOTE | 2019-10-23 04:56 | NUR ---
PT RESTING IN BED. NO APPARENT DISTRESS NOTED. IVF INFUSING WITHOUT DIFFICULTY. SITTER PRESENT. CALL LIGHT WITHIN REACH. WILL CONTINUE TO MONITOR.
[2019-10-23 05:00] VITALS: BP 137/83
[2019-10-23 07:45] VITALS: BP 122/84
--- NOTE | 2019-10-23 10:10 | NUR ---
PT SEEN AT REST IN THE BED, NONVERBAL NORMAL FOR HIM. LUNGS CLEAR, DIMINISHED THROUGHOUT, RA. NO EVIDENCE OF SHORTNESS OF BREATH. SITTER OVERSEES PT FROM ANTEROOM.
--- NOTE | 2019-10-23 12:56 | NUR ---
PT EATING DINNER WITH SITTER FEEDING. NO CHANGE IN STATUS NOTED. BROTHER HENRY HAS CALLED FOR AN UPDATE.
[2019-10-23 14:00] VITALS: BP 147/90
--- NOTE | 2019-10-23 17:33 | NUR ---
PT REMAINS AT REST IN THE BED WITH SITTER AT BEDSIDE. NO CHANGE IN STATUS.
--- NOTE | 2019-10-23 19:00 | NUR ---
REPORT FROM TRINH SOW. PT NOTED RESTING IN BED. PT ALERT TO SELF BUT NONVERBAL. NO APPARENT DISTRESS NOTED. IV SITES APPEARS HEALTHY. PT NO APPARENT S/S OF PAIN OR DISCOMFORT. NO APPARENT RESPIRATORY DISTRESS NOTED, ON RA. DISCUSSED POC. CALL LIGHT WITHIN REACH, SITTER PRESENT. WILL CONTINUE TO MONITOR.
[2019-10-23 19:16] VITALS: BP 148/89
--- NOTE | 2019-10-23 21:20 | NUR ---
PT MEDICATED ORDERED. PT TOLERATED WELL. ORAL FLUIDS PROVIDED. NO APPARENT DISTRESS NOTED. PT SITTING UP WATCHING TV. SITTER PRESENT. CALL LIGHT WITHIN REACH. WILL CONTINUE TO MONITOR.
--- NOTE | 2019-10-24 00:26 | NUR ---
PT RESTING IN BED WITH EYES CLOSED. NO APPARENT DISTRESS NOTED. RESPIRATIONS EVEN AND UNLABORED. IV ABT INFUSING WITHOUT DIFFICULTY. SITTER PRESENT. CALL LIGHT WITHIN REACH. WILL CONTINUE TO MONITOR.
[2019-10-24 04:00] VITALS: BP 152/88
[2019-10-24 06:12] LABS: HEMATOCRIT 32.6 % (39.0-50.0); HEMOGLOBIN 9.9 g/dl (14.0-18.0); IMMATURE GRANULOCYTES 1.4 % (0.0-5.0); MEAN CELL VOLUME 87.6 fL CALC (80.0-100.0); MEAN CORPUSCULAR HGB 26.6 pG CALC (26.0-32.0); MEAN CORPUSCULAR HGB CONC 30.4 g/dL CAL (32.0-36.0); NEUT# 4.55 thou/uL (1.82-7.42); RED BLOOD COUNT 3.72 mill/uL (4.70-6.10); RED CELL DISTRI WIDTH 21.4 % (11.5-15.5)
[2019-10-24 06:28] LABS: ALBUMIN 2.8 g/dL (3.2-5.0); ALKALINE PHOSPHATASE 113 u/l (38-126); ANION GAP 6 (6-22 (CALC)); BUN 9 mg/dL (9-20); BUN/CREATININE RATIO 9 (12-20 (CALC)); C-REACTIVE PROTEIN 7.2 mg/dL (0-0.9); CARBON DIOXIDE 27 mmol/l (22-30); CHLORIDE 116 mmol/l (95-108); GFR > 60 ML/MIN (>=60 (CALC)); GFR FOR AFR.AMER. > 60 ML/MIN (>=60 (CALC)); POTASSIUM 3.6 mmol/l (3.5-5.1); SGOT/AST 21 u/l (17-59); SODIUM 145 mmol/l (137-146)
[2019-10-24 06:29] LABS: BILIRUBIN, TOTAL 0.1 mg/dL (0.0-1.4)
--- NOTE | 2019-10-24 06:43 | NUR ---
PT RESTING IN BED WITH EYES CLOSED. NO APPARENT DISTRESS NOTED. RESPIRATIONS EVEN AND UNLABORED. CALL LIGHT WITHIN REACH. WILL CONTINUE TO MONITOR.
--- NOTE | 2019-10-24 08:14 | NUR ---
ATIENT IS AWAKE, ORIENTED X1. PT ABLE TO FOLLOW COMMANDS, ANSWER QUESTIONS. PTS CAREGIVER FEEDING BREAKFAST NURSING ASSESSMENT PERFORMED. FLSUHES ROPERLY, RETURNS BLOOD. IV FLUIDS INFUSING PROPERLY. PATIENT OFFERED ENSURE, EFUSED, PT ABLE TO GET UP TO BSC WITHOUT DIFFICULTY, SELF REPSOITIONS. REQUESTED BLANKET, WARM BLANKET PROVIDED. CALL LIGHT WITHIN EACH.
--- NOTE | 2019-10-24 12:45 | NUR ---
PT CONTINUES BEFORE, NO EVIDENCE OF DISTRESS. IV SITE REMAINS PATENT. TABULATING SUPERVISOR AT BEDSIDE. CALL HERNANDEZ WITH IN REACH. WILL CONTINUE TO OBSERVE.
[2019-10-24 14:17] VITALS: BP 139/81
--- NOTE | 2019-10-24 17:40 | NUR ---
PT CONTINUES BEFORE, NO EVIDENCE OF DISTRESS. SITTER BEDSIDE. IV SITE REMAINS PATENT.CALL HERNANDEZ WITH IN REACH. WILL CONTINUE TO OBSERVE.
[2019-10-24 19:00] VITALS: BP 114/78
[2019-10-25 04:30] VITALS: BP 130/81
--- NOTE | 2019-10-25 05:19 | NUR ---
DEMURRAGE WORKER SAT PT UP IN BED AND ASKED IF HE WANTED HIS FACE SHAVED, PT SHOOK HEAD YES, DEMURRAGE WORKER THEN PROVIDED SHAVE AND ORAL CARE. PT TOLERATED WELL AND WAS SMILING. IV ABT INITIATED. NO APPARENT S/S OF PAIN OR DISCOMFORT NOTED. CALL LIGHT WITHIN REACH. SITTER PRESENT. WILL CONTINUE TO MONITOR.
[2019-10-25 07:15] LABS: HEMATOCRIT 33.4 % (39.0-50.0); HEMOGLOBIN 10.3 g/dl (14.0-18.0); IMMATURE GRANULOCYTES 0.9 % (0.0-5.0); MEAN CELL VOLUME 88.1 fL CALC (80.0-100.0); MEAN CORPUSCULAR HGB 27.2 pG CALC (26.0-32.0); MEAN CORPUSCULAR HGB CONC 30.8 g/dL CAL (32.0-36.0); NEUT# 7.26 thou/uL (1.82-7.42); RED BLOOD COUNT 3.79 mill/uL (4.70-6.10); RED CELL DISTRI WIDTH 21.7 % (11.5-15.5)
--- NOTE | 2019-10-25 07:20 | NUR ---
REPORT RECIEVED FROM ANTWAN RUSHING.
[2019-10-25 07:42] LABS: ANION GAP 6 (6-22 (CALC)); BUN 11 mg/dL (9-20); BUN/CREATININE RATIO 13 (12-20 (CALC)); CARBON DIOXIDE 27 mmol/l (22-30); CHLORIDE 116 mmol/l (95-108); CREATININE 0.8 mg/dL (0.7-1.3); GFR > 60 ML/MIN (>=60 (CALC)); GFR FOR AFR.AMER. > 60 ML/MIN (>=60 (CALC)); POTASSIUM 3.8 mmol/l (3.5-5.1); SODIUM 145 mmol/l (137-146)
[2019-10-25 09:30] VITALS: BP 130/85
--- NOTE | 2019-10-25 09:30 | NUR ---
PT RESTING IN SEMI FOWLERS POSITION WITH SITER AT BEDSIDE,PT NOTED TO BE NON-VERBAL BUT WILL NOD HEAD "YES" OR "NO" TO SIMPLE QUESTIONS;VS OBTAINED AND ASSESSMENT COMPLETED;PT DENIES ANY CURRENT PAIN AND DOES NOT SEEM TO BE IN ANY DISTRESS,PAIN SCALE AND REPORTING EDUCATED;RESPIRATIONS EVEN AND UNLABORED ON RA,DIMINISHED LUNG SOUNDS;NON-PRODUCTIVE COUGH AT TIMES;ABDOMEN SOFT ON PALPATION AND ACTIVE IN ALL 4 QUADRANTS;STRONG PEDAL PULSES;SKIN INTACT;#20G TO RAC INFUSING NS PER ORDER,SITE APPEARS HEALTHY;PT DENIES ANY ADDITIONAL NEEDS AT THIS TIME AND IS ENCOURAGED TO CALL FOR ASSISTANCE IF NEEDED;CALL LIGHT IN REACH,BED ALARM ON AND SITTER AT BEDSIDE;SEIZURE PRECAUTIONS;WILL CONTINUE TO MONITOR
[2019-10-25] MEDS ORDERED: CIPROFLOXACN500 MG PO (11:11)
--- NOTE | 2019-10-25 13:20 | NUR ---
PT RESTING IN SEMI FOWLERS POSITION WITH HAYLEY GRAY AT BEDSIDE;RESPIRATIONS EVEN AND UNLABORED ON RA;NO S/S OF DISTRESS NOTED;IV FLUIDS INFUSING TO RAC WITH EASE AND ABX HUNG AT THIS TIME;ASSESSMENT REMAINS UNCHANGED;BED ALARM AND SITTER REMAIN AT BEDSIDE;CALL LIGHT IN REACH;WILL CONTINUE TO MONITOR
[2019-10-25 15:55] VITALS: BP 140/81
--- NOTE | 2019-10-25 15:55 | NUR ---
PT RESTING IN SEMI FOWLERS POSITION WITH SITTER AT BEDSIDE;RESPIRATIONS EVEN AND UNLABORED ON RA;NO S/S OF DISTRESS NOTED;IV FLUIDS INFUSING WITH EASE PER ORDER;EDUCATED PT ON PLANS TO D/C BACK TO [facility];ALL SAFETY PRECAUTIONS IN PLACE WITH BED IN THE LOWEST POSITION AND CALL LIGHT IN REACH;WILL CONTINUE TO MONITOR
--- NOTE | 2019-10-25 16:30 | NUR ---
ALL DISCHARGE INSTRUCTIONS AND RX LEFT WITH PT AT THIS TIME TO [facility]IV SITE REMOVED WITH CATHETER INTACT;PT TRANSPORTED TO [facility] IN STABLE CONDITION VIA WHEELCHAIR ACCOMPANIED BY FRANCISCO CNA. [facility] PROVIDED TRANSPORTATION.
== END 2019-10-25 16:30 | disposition short-term general hospital (02) | DRG 871 ==
LOC: ED 11:14 → ED-I 12:50 → ED 13:12 → ED-I 13:13 → MS2 13:13
PROVIDERS: Family Medicine; Internal Medicine; Nurse Practitioner; Nurse Practitioner Family; ADMIT Internal Medicine; ATTEND Internal Medicine
DX: A41.51 Sepsis due to Escherichia coli [E. coli] (principal); J18.9 Pneumonia, unspecified organism; J96.01 Acute respiratory failure with hypoxia; F72 Severe intellectual disabilities; I95.9 Hypotension, unspecified; G40.909 Epilepsy, unspecified, not intractable, without status epilepticus; K44.9 Diaphragmatic hernia without obstruction or gangrene; K21.9 Gastro-esophageal reflux disease without esophagitis; D50.9 Iron deficiency anemia, unspecified; Z20.828 Contact with and (suspected) exposure to other viral communicable diseases
CPT/HCPCS: G0378; J0131; J0692; J1650; Q9967

== ENCOUNTER 2020-12-21 17:02 | Emergency (ER) | payer MEDICARE, MEDICAID ==
[~2020-12-21] VITALS: Ht 167.6 cm; Wt 60.0 kg
[~2020-12-21 17:02] MED LIST changes: +CIPROFLOXACN500 MG PO; +PROTONIX40 M2 PO
[2020-12-21 18:16] LABS: HEMATOCRIT 39.3 % (39.0-50.0); HEMOGLOBIN 12.3 g/dl (14.0-18.0); MEAN CELL VOLUME 92.7 fL CALC (80.0-100.0); MEAN CORPUSCULAR HGB CONC 31.3 g/dL CAL (32.0-36.0); NEUT# 1.99 thou/uL (1.82-7.42); RED BLOOD COUNT 4.24 mill/uL (4.70-6.10); RED CELL DISTRI WIDTH 19.6 % (11.5-15.5)
[2020-12-21 18:24] LABS: ANION GAP 15 (6-22 (CALC)); BUN 11 mg/dL (8-23); BUN/CREATININE RATIO 12 (12-20 (CALC)); CARBON DIOXIDE 26 mmol/l (22-30); CHLORIDE 101 mmol/l (95-108); CREATININE 0.9 mg/dL (0.7-1.3); GFR > 60 ML/MIN (>=60 (CALC)); GFR FOR AFR.AMER. > 60 ML/MIN (>=60 (CALC)); POTASSIUM 4.5 mmol/l (3.5-5.1); SODIUM 137 mmol/l (137-146)
[2020-12-21 20:38] LABS: URINE BILIRUBIN - DIPSTICK NEGATIVE (NEGATIVE); URINE BLOOD DIPSTICK NEGATIVE (NEGATIVE); URINE COLOR YELLOW; URINE GLUCOSE - DIPSTICK NEGATIVE (NEGATIVE); URINE KETONE NEGATIVE (NEGATIVE); URINE LEUK ESTERASE NEGATIVE (NEGATIVE); URINE PROTEIN - DIPSTICK NEGATIVE (NEG-TRACE); URINE SPECIFIC GRAVITY >=1.030; URINE UROBILINOGEN - DIPSTICK 0.2 E.U./dL (0.2)
[2020-12-21 20:40] LABS: URINE NITRITE - DIPSTICK NEGATIVE (Negative)
[2020-12-21 21:01] VITALS: BP 119/75
== END 2020-12-21 21:13 ==
LOC: ED 17:02
PROVIDERS: Family Medicine
DX: R53.83 Other fatigue (principal); G80.9 Cerebral palsy, unspecified; G40.909 Epilepsy, unspecified, not intractable, without status epilepticus; R62.50 Unspecified lack of expected normal physiological development in childhood; Z20.822 Contact with and (suspected) exposure to COVID-19; E61.1 Iron deficiency; D64.9 Anemia, unspecified; E86.0 Dehydration

== ENCOUNTER 2021-01-02 13:10 | Observation (INO) | payer MEDICARE, MEDICAID ==
[~2021-01-02] VITALS: Ht 167.6 cm; Wt 54.0 kg
[2021-01-02] VITALS: BP 90/50
[~2021-01-02 13:10] MED LIST changes: -GLYCOLAX PO; +GLYCOLAX17 GM/SCOO PO
--- NOTE | 2021-01-02 13:15 | NUR ---
PATIENT TO ROOM VIA WHEELCHAIR. BEDSIDE TRIAGE COMPLETED
--- NOTE | 2021-01-02 14:56 | NUR ---
PT ON CONTINUOUS CARDIA MONITOR, AWAITING BLOOD RESULTS
[2021-01-02 15:05] LABS: HEMATOCRIT 42.5 % (39.0-50.0); HEMOGLOBIN 13.2 g/dl (14.0-18.0); IMMATURE GRANULOCYTES 0.4 % (0.0-5.0); MEAN CELL VOLUME 93.2 fL CALC (80.0-100.0); MEAN CORPUSCULAR HGB 28.9 pG CALC (26.0-32.0); MEAN CORPUSCULAR HGB CONC 31.1 g/dL CAL (32.0-36.0); NEUT# 18.51 thou/uL (1.82-7.42); RED BLOOD COUNT 4.56 mill/uL (4.70-6.10); RED CELL DISTRI WIDTH 18.2 % (11.5-15.5)
[2021-01-02 15:28] LABS: ALBUMIN 4.3 g/dL (3.2-5.0); ALKALINE PHOSPHATASE 119 u/l (38-126); ANION GAP 14 (6-22 (CALC)); BILIRUBIN, TOTAL 0.4 mg/dL (0.0-1.4); BUN 16 mg/dL (8-23); BUN/CREATININE RATIO 17 (12-20 (CALC)); CARBON DIOXIDE 27 mmol/l (22-30); CHLORIDE 97 mmol/l (95-108); CREATININE 0.9 mg/dL (0.7-1.3); GFR > 60 ML/MIN (>=60 (CALC)); GFR FOR AFR.AMER. > 60 ML/MIN (>=60 (CALC)); POTASSIUM 4.2 mmol/l (3.5-5.1); SGOT/AST 36 u/l (19-48); SODIUM 134 mmol/l (137-146); TOTAL PROTEIN 8.1 g/dL (6.3-8.2)
--- NOTE | 2021-01-02 16:32 | NUR ---
PT AWAITING ADMISSION, WHEELCHAIR SENT HOME WITH MOTOR LODGE CLERK
[2021-01-02 17:56] VITALS: BP 105/60
--- NOTE | 2021-01-02 18:07 | NUR ---
GAVE REPORT TO ALINA RN, TRANSFERED PT VIA STRETCHER TO FLOOR, PT WET THE BED ON THE WAY, STAYED TO HELP RNS CLEAN PT AND GET HIM DRY
--- NOTE | 2021-01-02 20:00 | NUR ---
PATIENT RESTING IN BED AT THIS TIME-POSITIONED ON LEFT SIDE IN POSITION. PATIENT WITH BREIF IN PLACE FOR BOWEL AND BLADDER INCONT.-CURRENTLY THE BREIF IS DRY. PATIENT RESPONDS TO VERBAL STIMULI WITH GRUNTING SOUND. PATIENT WITH SEVERE DEVELOPMENTAL DELAY. SIDERAILS ARE PADDED FOR SEIZURE PRECAUTIONS. TELE MONITOR IN PLACE WITH LAST READING BEING ST-108. IV SITE TO LAC WITH IVF NS PATIENT AND INFUSING AT 100CC/HR. PATIENT WAS ABLE TO TAKE PO MEDS IN APPLESAUCE WHOLE WITHOUT ANY DIFFICULTY. PATIENT WAS ABLE TO EAT PUREED DINNER WITHOUT ANY DIFFICULTY WHEN FED. NO COUGHING NOTED, LACTIC ACID WAS DRAWN. CALL LIGHT IN REACH.WILL CONT TO MONITOR.
--- NOTE | 2021-01-02 20:30 | NUR ---
RECIEVED CALL FROM YEN IN THE LAB WITH LACTIC ACID RESULTS-3.9. DR. HASSAN CALLED WITH THE RESULTS. RECIEVED ORDER FOR 500CC IVF BOLUS NOW AND REPEAT LACTIC ACID IN 2 HOURS. WILL CONT TO MONITOR.
[2021-01-02 22:00] VITALS: BP 85/60
--- NOTE | 2021-01-02 22:28 | NUR ---
RECEIVED CALL FROM YEN IN LAB WITH CRITICAL LACTIC ACID AGAIN-2.7. DR. HASSAN WAS CALLED AGAIN WITH RESULTS. NEW ORDERS FOR IVF AT 150CC/HR TONIGHT AND THEN REPEAT LACTIC IN 2 HOURS. PATIENT RESTING IN BED. WILL CONT TO MONITOR.
[2021-01-03] VITALS: BP 121/82; BP 90/50
--- NOTE | 2021-01-03 00:03 | NUR ---
PATIENT RESTING IN BED AT THIS TIME POSITIONED ON LEFT SIDE AGAIN. RESPS ARE EVEN AND UNLABORED. TELE MONITOR IN PLACE. IVF PATENT AND INFUSING ORDERED VIA LAC SITE. SIDERAILS PADDED FOR SEIZUIRE PRECAUTIONS-NO SEIZURE ACTIVITY NOTED. CALL LIGHT IN REACH. WILL CONT TO MONITOR.
--- NOTE | 2021-01-03 01:00 | NUR ---
PATIENT RESTING IN BED AT THIS TIME.LAST LACTIC ACID WAS 1.7. IVF NS PATENT AND INFUSING VIA LEFT AC SITE AT 150CC/HR. TELE MONITOR IN PLACE-LAST READING WAS SR-96. POSITIONED ON RIGHT SIDE AT THIS TIME. WILL CONT TO MONITOR.
[2021-01-03 04:00] VITALS: BP 92/51
--- NOTE | 2021-01-03 04:15 | NUR ---
PATIENT RESTING IN BED AT THIS TIME-OCC NON-PRODUCTIVE COUGH NOTED. TELE MONITOR IN PLACE WITH LAST READING SR-92. IVF PATENT AND INFUSING VIA LAC AT 150CC/HR. INCONT OF MODERATE AMT OF URINE. PERICARE DONE WITH SOAP AND WATER. POSITIONED ON LEFT SIDE. CALL LIGHT IN REACH. WILL CONT TO MONITOR.
[2021-01-03 05:19] LABS: MEAN CELL VOLUME 92.8 fL CALC (80.0-100.0); MEAN CORPUSCULAR HGB 29.7 pG CALC (26.0-32.0); RED BLOOD COUNT 3.6 mill/uL (4.70-6.10)
[2021-01-03 05:24] LABS: HEMATOCRIT 33.4 % (39.0-50.0); HEMOGLOBIN 10.7 g/dl (14.0-18.0)
[2021-01-03 05:29] LABS: BUN 13 mg/dL (8-23); BUN/CREATININE RATIO 17 (12-20 (CALC)); CARBON DIOXIDE 24 mmol/l (22-30); CREATININE 0.7 mg/dL (0.7-1.3); GFR > 60 ML/MIN (>=60 (CALC)); GFR FOR AFR.AMER. > 60 ML/MIN (>=60 (CALC)); MAGNESIUM 1.9 mg/dL (1.6-2.3)
[2021-01-03 05:45] LABS: ANION GAP 10 (6-22 (CALC)); CHLORIDE 111 mmol/l (95-108); SODIUM 141 mmol/l (137-146)
[2021-01-03 07:00] VITALS: BP 98/60
--- NOTE | 2021-01-03 07:00 | NUR ---
PATIENT LAYING IN BED AT THIS TIME AWAKE RESPIRATIONS EASY AND UNLABORED AT THIS TIME. LUNG FILED ARE CLEAR AND NO COUGH NOTED AT THIS TIME. PATIENT WAS GIVEN ORDER PROTONIX PO IN APPLE SAUCE AND DID TAKE WITHOUT INCIDENT. PATIENT PRESENTS MUTE BUT ALERT TO NAME AND MOANS OUT WHEN ASKED QUESTIONS. PATIENT LAYS IN A POSITION BUT CAN STRAIGHTEN LEGS OUT ON COMMAND. SKIN SHOWS NO SIGNS OF BREAKDOWN. PHOTO MACHINE OPERATOR DONE SEE INTERVENTIONS. SIDERAILS ARE UP X 3 CALL LIGHT IS WITHIN REACH AND BED ALARM IS ENGAGED. PATIENT TELE MONITOR IN PLACE AND BEING MONITORED BY ED. WILL CONTINUE TO MONITOR PATIENT.
[2021-01-03] MEDS ORDERED: OMEPRAZOLE DR40 MG PO (09:32)
[2021-01-03] MEDS ORDERED: CARAFATE PO (09:33)
[2021-01-03] MEDS ORDERED: ENSURE CLEAR PO ×2 (09:34→09:36)
[2021-01-03 10:38] VITALS: BP 131/89
--- NOTE | 2021-01-03 12:05 | NUR ---
PATIENT LAYING IN BED AT THIS TIME NO PAIN NOTED SIDERAILS PADDED AND UP WILL CONTINUE TO MONITOR TELE ON AND ED MONITORING
--- NOTE | 2021-01-03 13:32 | NUR ---
PATIENT LAYING IN BED SMILING AND ANTIBIOTIC AZITHROMYCIN STARTED AT THIS ITME.
[2021-01-03 15:46] VITALS: BP 98/80
--- NOTE | 2021-01-03 16:06 | NUR ---
PATIENT LAYING IN BED WATCHING TV AT THIS TIME. GRADES 9 THRU 12 VISITING TEACHER'S IN TO TURN AND CHANGE PATIENT AT THIS TIME. PADDED SIDERAILS ARE UP AND CALL LIGHT IS WITHIN REACH AND TELE MONITOR IN PLACE AND BE MONITORED BY ED.
[2021-01-03 19:00] VITALS: BP 112/78
--- NOTE | 2021-01-03 19:59 | NUR ---
PHYSICAL ASSESMENT COMPLETE. PT CURRENTLY DENIES PAIN OR DISCOMFORT. SCHEDULED MEDICATIONS AND PRN MEDICATION ADMINISTERED, SEE E-MAR. PT DENIES ANY NEEDS AT THIS TIME. PLAN OF CARE REVIEWED, PT DENIES QUESTIONS, VERBALIZES UNDERSTANDING. ITEMS WITHIN REACH, BED LOCKED IN LOW POSITION W/ BEDRAILS UP X2. CALL HERNANDEZ WITHIN REACH, AGREES TO CALL PRN.
--- NOTE | 2021-01-04 | NUR ---
PT LAYING IN BED WITH EYES CLOSED, APPEARS TO BE SLEEPING, APPEARS COMFORTABLE AND IN NO DISTRESS. RESPIRATIONS REGULAR AND UNLABORED. ITEMS REMAIN WITHIN REACH, CALL HERNANDEZ REMAINS WITHIN REACH. BED REMAINS LOCKED AND IN LOW POSITION WITH BEDRAILS UP X2. WILL CONTINUE TO MONITOR.
[2021-01-04 04:00] VITALS: BP 124/71
--- NOTE | 2021-01-04 05:09 | NUR ---
PT RESTING IN BED, NO SIGNS OF DISTRESS NOTED, RESP EVEN AND UNLABORED. PT VOICES NO NEEDS OR COMPLAINTS AT THIS TIME. CALL LIGHT IN REACH, CONTINUE TO MONITOR.
--- NOTE | 2021-01-04 09:00 | NUR ---
PT RESTING IN BED. NO DISTRESS NOTED. PT NON VERBAL. NO EVIDENCE OF ASPIRATION. CALL LIGHT WITHIN REACH.
[2021-01-04 10:04] LABS: HEMATOCRIT 36.3 % (39.0-50.0); HEMOGLOBIN 11.5 g/dl (14.0-18.0); IMMATURE GRANULOCYTES 0.1 % (0.0-5.0); MEAN CELL VOLUME 93.1 fL CALC (80.0-100.0); MEAN CORPUSCULAR HGB 29.5 pG CALC (26.0-32.0); MEAN CORPUSCULAR HGB CONC 31.7 g/dL CAL (32.0-36.0); NEUT# 12.59 thou/uL (1.82-7.42); RED BLOOD COUNT 3.9 mill/uL (4.70-6.10); RED CELL DISTRI WIDTH 18.5 % (11.5-15.5)
[2021-01-04 10:21] LABS: ANION GAP 13 (6-22 (CALC)); BUN 9 mg/dL (8-23); BUN/CREATININE RATIO 12 (12-20 (CALC)); CARBON DIOXIDE 26 mmol/l (22-30); CHLORIDE 108 mmol/l (95-108); CREATININE 0.7 mg/dL (0.7-1.3); GFR > 60 ML/MIN (>=60 (CALC)); GFR FOR AFR.AMER. > 60 ML/MIN (>=60 (CALC)); POTASSIUM 3.5 mmol/l (3.5-5.1); SODIUM 143 mmol/l (137-146)
[2021-01-04 10:50] VITALS: BP 115/58
--- NOTE | 2021-01-04 11:45 | NUR ---
SPEECH EVALUATION: Patient is a 60 y/o male admitted to the hospital d/t sepsis, right lobe PNA, and Leukocytosis. Patient is non-verbal and lives at a [facility]. Unable to report baseline diet. Currently receiving pureed solids and honey thick liquids d/t concern from nursing staff regarding aspiration. Patient unable to participate in oral motor assessment d/t difficulties following commands 2/2 cognitive status. Pt given PO trials of thin liquids (by spoon/straw), nectar thick liquids by (spoon/straw), and pureed solids. Pt presented with lingual thrusting, difficulties drawing liquids from a straw d/t lingual thrusting (able to, but takes a while to acheive lip closure), suspected delayed pharyngeal swallow, and multiple swallows. No overt s/s of penetration/aspiration at bedside. Pt is a high risk for aspiration given developmental disability and disorganized swallow. At this time recommend continue current diet. MBS warranted to further assess the oropharyngeal swallow and r/o aspiration/silent aspiration. Discussed with MD. [facility]: 09/07: Recommend d/c back to shelter with 24 hour supervision/assistance.
[2021-01-04 14:40] VITALS: BP 131/77
--- NOTE | 2021-01-04 16:51 | NUR ---
PT IS NON-VERBAL BUT NODS AT SOME INSTRUCTIONS. PT RESTING WITH NO SIGNS OF ANY PAIN/DISTRESS. PT WAS given A NEW IV SITE #20G RIGHT FOREARM. DUE TO YANKING OUT PREVOUS IV.
[2021-01-04 19:00] VITALS: BP 118/72
--- NOTE | 2021-01-04 19:15 | NUR ---
Patient is awake in bed, non verbal, respirations even and unlabored on RA. Skim warm and dry. BS +4. Brief in place. VAD infusing IVF as ordered. Patient right side lying. Assessment completed and charted. Bed in low position. Call light within reach.
[2021-01-05] VITALS: BP 141/80
--- NOTE | 2021-01-05 00:47 | NUR ---
Pt resting with eyes closed. No acute distress observed. Fall precautions in place. Bed in low position. Call light within reach.
[2021-01-05 04:00] VITALS: BP 134/81
--- NOTE | 2021-01-05 04:42 | NUR ---
No changes noted.
[2021-01-05 05:32] LABS: HEMATOCRIT 36.1 % (39.0-50.0); HEMOGLOBIN 11.6 g/dl (14.0-18.0); IMMATURE GRANULOCYTES 0.1 % (0.0-5.0); MEAN CELL VOLUME 91.9 fL CALC (80.0-100.0); MEAN CORPUSCULAR HGB 29.5 pG CALC (26.0-32.0); MEAN CORPUSCULAR HGB CONC 32.1 g/dL CAL (32.0-36.0); NEUT# 8.43 thou/uL (1.82-7.42); RED BLOOD COUNT 3.93 mill/uL (4.70-6.10); RED CELL DISTRI WIDTH 18.3 % (11.5-15.5)
[2021-01-05 05:42] LABS: ANION GAP 11 (6-22 (CALC)); BUN 11 mg/dL (8-23); BUN/CREATININE RATIO 17 (12-20 (CALC)); CARBON DIOXIDE 25 mmol/l (22-30); CHLORIDE 111 mmol/l (95-108); CREATININE 0.7 mg/dL (0.7-1.3); GFR > 60 ML/MIN (>=60 (CALC)); GFR FOR AFR.AMER. > 60 ML/MIN (>=60 (CALC)); MAGNESIUM 1.7 mg/dL (1.6-2.3); POTASSIUM 3.5 mmol/l (3.5-5.1); SODIUM 143 mmol/l (137-146)
[2021-01-05 08:00] VITALS: BP 139/88
--- NOTE | 2021-01-05 08:00 | NUR ---
REPORT RECEIVED FROM JUANJOSE UPTON. PT RESTING SEMI-FOWLERS. DOES NOT APPEAR TO BE IN ANY PAIN, SOB OR DISTRESS. VSS. SAFETY REVIEWED. WILL CONTINUE TO MONITOR CLOSELY.
[2021-01-05] MEDS ORDERED: ZITHROMAX250 MG PO (09:19)
[2021-01-05] MEDS ORDERED: OMNICEF300 MG PO (09:19)
[2021-01-05 11:10] VITALS: BP 139/76
--- NOTE | 2021-01-05 14:02 | NUR ---
S: Patient was very compliant with PT on this date . O: Patient performed 1 X 10 each seated hip flexion 1 x 10 each seated knee extension CGA bed mobility and transfers Ambulation x 40 feet with Min A x 1 A: Patient was very willing to comply and participate with PT on this date. Patient responded well to verbal and tactile cues to transfer from supine to sit and STS. Patient had no difficulty maintaining sitting balance during seated exercises and responded well after multiple initial verbal and tactile cues. Patient ambulated well with Min A x 1, he displayed shortened stride length and occasionally got his COG outside JS which was corrected with verbal and tactile cues. Patient is ambulating farther with each visit and is showing that he is getting stronger. P: Patient will continue with strengthening, balance training and endurance exercises to improve with ADLs and LOF. Patient's AM PAC score on this date was 13 on this date and it is recommended that he should receive home health care for future interventions and HEP.
[2021-01-05 15:12] VITALS: BP 139/96
--- NOTE | 2021-01-05 16:33 | NUR ---
IV ROCEPHIN INFUSING AT THIS TIME. DISCHARGE INSTRUCTIONS PROVIDED TO MARK ARMENDARIZ. 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 PT DOES NOT APPEAR TO BE IN ANY TYPE OF DISTRESS. WILL CONTINUE TO MONITOR.
== END 2021-01-05 17:20 ==
LOC: ED 13:10 → ED-I 16:20 → ED 17:07 → MS2 17:08
PROVIDERS: Nurse Practitioner; ADMIT Internal Medicine; ATTEND Internal Medicine
DX: A41.9 Sepsis, unspecified organism (principal); J18.9 Pneumonia, unspecified organism; F72 Severe intellectual disabilities; R73.9 Hyperglycemia, unspecified; G40.909 Epilepsy, unspecified, not intractable, without status epilepticus; K21.9 Gastro-esophageal reflux disease without esophagitis; E87.2 Acidosis; Z20.822 Contact with and (suspected) exposure to COVID-19
CPT/HCPCS: J1650

== ENCOUNTER 2021-04-11 12:37 | Inpatient (IN) | payer MEDICARE, MEDICAID ==
[~2021-04-11] VITALS: Ht 167.6 cm; Wt 62.0 kg
[2021-04-11] VITALS (23 sets, daily range): BP systolic 73–122; BP diastolic 42–62
[~2021-04-11 12:37] MED LIST changes: +B12-ACTIVE1 MG PO; +CARAFATE PO; +DILANTIN100 MG OR; +ENSURE CLEAR PO; +FERR SULFATE325 MG PO; +FERROUS SULF325 M1 PO; +FOLIC ACID1 MG OR; +OMEPRAZOLE DR40 MG PO; +OMNICEF300 MG PO; +PRILOSEC20 MG/CAP PO; +ZITHROMAX250 MG PO
--- NOTE | 2021-04-11 12:54 | NUR ---
PT BROUGHT TO ROOM VIA WC WITH LETHARGY
--- NOTE | 2021-04-11 13:30 | NUR ---
LEVOPHED GTT INITIATED PER PROTOCOL
[2021-04-11 13:37] LABS: HEMATOCRIT 36.1 % (39.0-50.0); HEMOGLOBIN 11.7 g/dl (14.0-18.0); IMMATURE GRANULOCYTES 0.3 % (0.0-5.0); MEAN CELL VOLUME 88.9 fL CALC (80.0-100.0); MEAN CORPUSCULAR HGB 28.8 pG CALC (26.0-32.0); MEAN CORPUSCULAR HGB CONC 32.4 g/dL CAL (32.0-36.0); NEUT# 14.22 thou/uL (1.82-7.42); RED BLOOD COUNT 4.06 mill/uL (4.70-6.10); RED CELL DISTRI WIDTH 15.6 % (11.5-15.5)
[2021-04-11 13:57] LABS: ALBUMIN 3.6 g/dL (3.2-5.0); ALKALINE PHOSPHATASE 158 u/l (38-126); ANION GAP 13 (6-22 (CALC)); BILIRUBIN, TOTAL 0.3 mg/dL (0.0-1.4); BUN 19 mg/dL (8-23); BUN/CREATININE RATIO 22 (12-20 (CALC)); CARBON DIOXIDE 26 mmol/l (22-30); CHLORIDE 96 mmol/l (95-108); CREATININE 0.9 mg/dL (0.7-1.3); GFR > 60 ML/MIN (>=60 (CALC)); GFR FOR AFR.AMER. > 60 ML/MIN (>=60 (CALC)); POTASSIUM 4.2 mmol/l (3.5-5.1); SGOT/AST 42 u/l (19-48); SODIUM 131 mmol/l (137-146); TOTAL PROTEIN 7.5 g/dL (6.3-8.2)
[2021-04-11 13:58] LABS: AMYLASE 80 u/l (30-110); LIPASE 29 u/l (23-300)
--- NOTE | 2021-04-11 14:01 | NUR ---
1330 NOREPHRINE STARTED AT 6 MCG/MIN 1340 NOREPI INCREASED TO 8MCG/MIN 1344 NOREPI INCREASED TO 12 MCG/MIN AND INITIATED DOPAMINE AT 5MCG/KG/MIN 1347 DOPAMINE INCREASED TO 10MCG/KG/MIN NOREPI INCREASED TO 18 MCG/MIN PATIENT AWAKE AND RESPONSIVE TO PAIN DREDGE OPERATOR SUPERVISOR STATES THAT PATIENT,S BASELINE IS NON-VERBAL
[2021-04-11 14:08] LABS: MYOGLOBIN 107 ng/mL (0 - 121)
--- NOTE | 2021-04-11 14:22 | NUR ---
PATIENT RESPONDS TO CALLING OF NAME OPENS EYE AND TRACKS WITH MOVEMENT AROUND THE ROOM. BLOOD PRESSURE INCREASING AND BAIRHUGGER REMAINS IN PLACE. MD NOTIFIED OF PATIENT STATUS
--- NOTE | 2021-04-11 15:14 | NUR ---
RT AT BEDSIDE
--- NOTE | 2021-04-11 15:18 | NUR ---
PT. NT SX'D AT 1510 FOR SMALL AMOUNT THICK YELLOW/DOTSON SECRETIONS AND ORALLY WITH YANKAUR FOR MODERATE AMOUNT THICK YELLOW/DOTSON SECRETIONS. MONIKA NURSING SECRETARY
--- NOTE | 2021-04-11 16:00 | NUR ---
16 FR LEROY CATH INSERTED USING STERILE TECHNIQUE, CAREGIVER AT BEDSIDE.
[2021-04-11] MEDS ORDERED: KEFLEX500 MG PO (16:06)
[2021-04-11 16:15] LABS: URINE BILIRUBIN - DIPSTICK NEGATIVE (NEGATIVE); URINE BLOOD DIPSTICK MODERATE (NEGATIVE); URINE COLOR YELLOW; URINE GLUCOSE - DIPSTICK NEGATIVE (NEGATIVE); URINE KETONE TRACE mg/dL (NEGATIVE); URINE LEUK ESTERASE NEGATIVE (NEGATIVE); URINE PH 5.5 (4.5-8.0); URINE PROTEIN - DIPSTICK TRACE mg/dL (NEG-TRACE); URINE SPECIFIC GRAVITY 1.025; URINE UROBILINOGEN - DIPSTICK 0.2 E.U./dL (0.2)
[2021-04-11 16:16] LABS: URINE NITRITE - DIPSTICK NEGATIVE (Negative)
[2021-04-11 16:26] LABS: URINE WBC 0-2 WBC/hpf (0-5)
--- NOTE | 2021-04-11 17:33 | NUR ---
REPORT CALLED TO ICU
--- NOTE | 2021-04-11 18:00 | NUR ---
TO ICU VIA STRETCHER
--- NOTE | 2021-04-11 18:10 | NUR ---
PT BROUGHT TO ROOM PER STRETCHER WITH ER NURSING STAFF. PT IS NON VERBAL, FROM A HALFWAY. DOES NOT RESPOND TO ANY QUESTIONS. EYES OPEN. HAS TWO PERIPHERAL LINES WITH DOPAMINE AT 10 MCG PER KG INFUSING IN LAC, AND LEVOPHED INFUSING AT 18 MCG. LAC APPEARS SLIGHTLY RED, BUT DOES NOT LOOK AT THIS TIME LIKE IT IS INFILTRATED. PT CAME INTO ER WITH BODY CORE TEMP OF 90. WAS PLACED ON WHITNEY HUGGER AND AT THIS TIME REMAINS ON THE WHITNEY HUGGER. HAS A #18 LEROY WITH LIGHT YELLOW URINE OUTPUT. VITAL SIGNS ARE STABLE AT THIS TIME WITH O2 AT 97% @ 2 LITRES. PT WAS GIVEN 2 LITRES OF NS IN ER. AT THIS TIME HE APPEARS LETHARGIC AND TURNS AWAY WHEN STAFF IS IN ROOM.
--- NOTE | 2021-04-11 19:00 | NUR ---
call received from Dr Resendiz; central line to be placed; ct of brain to be held until pt stable; will continue to monitor
--- NOTE | 2021-04-11 19:05 | NUR ---
this magazine writer and JUANJOSE Manzanares present at bedside for report; redness noted to inner lfa/lac area; iv flushed and brisk bloood return noted; dopamine gtt continues; ER to be notified for central line placement
--- NOTE | 2021-04-11 19:15 | NUR ---
pt awake in bed resting on left side; no apparent distress noted; assessment completed at this time; pt alert; nonverbal; occasional moaning noted; no s/sx of pain noted; resp even and unlabored; lungs clear/ diminished; skin color wnl; o2 per nc at 3L; suction on at bedside for oral clearance; market reporter cough noted; hr reg; weak pedal pulses; no edema noted; sr on monitor; abd soft with bs present; no bm noted per auto service writer; pimentel to gravity draining cloudy yellow urine; #20 patent to lac with dopamine gtt infusing at 10mcg/kg/min; #18 patent to rac with levophed gtt infusing at 18mvg/min, titrated to 20mcg/min; ivs flushed and patent; blood return from each; mine zamora in place at med temp; temp 96.1; pt repositioned; will continue to monitor closely
--- NOTE | 2021-04-11 20:00 | NUR ---
resting in bed on left side; easily aroused; no apparent distress noted; sr on monitor; #22 started to rw x1 attempt; iv flushed and patent; abts to be initiated; will continue to monitor
--- NOTE | 2021-04-11 20:40 | NUR ---
Dr Resendiz called per writer editor in regards to blood cultures; order received; per lab, cultures are in lab pending order
--- NOTE | 2021-04-11 22:15 | NUR ---
Dr Resendiz informed of lactic acid results; orders received; iv intact and patent; dopamine gtt titrated; sr on moitor; both iv sites flushed and patent with good blood return; no edema noted; continue to await central line placement; repositioned to right side; will continue to monitor
--- NOTE | 2021-04-11 23:42 | NUR ---
dopamine and levophed gtt titrated for hypotension; pt noted with yellow emesis; oral care and suctioning provided; repositioned; iv's flushed and patent; brisk blood return noted from all sites; no edema present; rectal temp 96.7; mine iselagger continued; will continue to monitor
[2021-04-12] VITALS (45 sets, daily range): BP systolic 95–155; BP diastolic 50–90
--- NOTE | 2021-04-12 00:15 | NUR ---
resting in bed with eyes closed; no apparent distress noted; repositioned; pimentel to gravity; iv's intact and patent; sr on monitor; call light within reach; will continue to monitor
--- NOTE | 2021-04-12 01:20 | NUR ---
Dr Tomlinosn present at bedside for central line placement; unsuccessful attempt to the right subclavian; TLC placed to left subclavian using sap technical developer; iv flushed and patent with brisk blood return; xray at bedside;
--- NOTE | 2021-04-12 02:00 | NUR ---
complete bed bath and linens changed at this time; pimentel care; sr on monitor; iv intact and patent; repositioned; pimentel to gravity; o2 per nc; will continue to monitor
--- NOTE | 2021-04-12 04:00 | NUR ---
resting in bed with eyes closed; easily aroused; no apparent distress noted; suctioned; sr on monitor; iv intact and patent; pimentel to gravity; o2 per nc; will continue to monitor
[2021-04-12 05:57] LABS: MEAN CELL VOLUME 88.3 fL CALC (80.0-100.0); MEAN CORPUSCULAR HGB 29.4 pG CALC (26.0-32.0); MEAN CORPUSCULAR HGB CONC 33.3 g/dL CAL (32.0-36.0); RED BLOOD COUNT 3.26 mill/uL (4.70-6.10); RED CELL DISTRI WIDTH 15.7 % (11.5-15.5)
--- NOTE | 2021-04-12 06:00 | NUR ---
awake in bed; cleansed for lg formed soft brown stool; catheter care; pt noted to have vomited with repositioned; oral care provided; sr on monitor; iv intact and patent; pimentel to gravity;
[2021-04-12 06:09] LABS: HEMATOCRIT 28.8 % (39.0-50.0); HEMOGLOBIN 9.6 g/dl (14.0-18.0)
[2021-04-12 06:18] LABS: BUN 15 mg/dL (8-23); BUN/CREATININE RATIO 18 (12-20 (CALC)); CHLORIDE 105 mmol/l (95-108); CREATININE 0.9 mg/dL (0.7-1.3); GFR > 60 ML/MIN (>=60 (CALC)); GFR FOR AFR.AMER. > 60 ML/MIN (>=60 (CALC)); MAGNESIUM 1.5 mg/dL (1.6-2.3); POTASSIUM 4.6 mmol/l (3.5-5.1); SODIUM 133 mmol/l (137-146)
[2021-04-12 06:27] LABS: ANION GAP 13 (6-22 (CALC)); CARBON DIOXIDE 20 mmol/l (22-30)
--- NOTE | 2021-04-12 07:24 | NUR ---
ORAL SXN PT FOR MODERATE AMT THIN BROWN VOMIT. NAD. VSS. PHOTO CARTOGRAPHER TO MONITOR.
--- NOTE | 2021-04-12 07:29 | NUR ---
S: BOLA SIMON is a 61 M who presents with pneumonia. He has a history of seizure disorder, developmentally delayed/HH, gerd, and anemia. All medications in patient's chart were reviewed. O: VS: BP 103/53 mmHG, P 86 beats/minute, RR 15 breaths/minute, T 97.0F W 63 KG, HT 66 inches, Scr=0.9, CrCl= 76 ml/min A: Blood culture from 04/11/2021 is pending. P: Patient is on Zosyn 4.5 GM IV Q6H. Vancomycin ordered for pharmacy to dose. Continue Vancomycin 1 GM IV Q12H. Vancomycin trough is drawn before the 4th dose on 04/13/2021 at 0600. Vancomycin goal trough is between <15-20 mcg/ml>. Pharmacy will follow and or advise on antibiotics use as needed.
--- NOTE | 2021-04-12 07:38 | NUR ---
Patient is screened for PT intervention and would benefit from OT and PT consults if medical agrees
--- NOTE | 2021-04-12 08:21 | NUR ---
PT LAYING ON RIGHT SIDE, DOPAMINE AND LEVOPHED INFUSING. SUCTIONED LIGHT BROWN SECRETIONS OUT OF MOUTH, PT IS TO REMAIN NPO AND NG TUBE PLACED
--- NOTE | 2021-04-12 08:55 | NUR ---
NG TUBE [address] CEDENO REQUEST, LARGE AMOUNT OF BROWNISH SECRETIONS OUT.
--- NOTE | 2021-04-12 11:28 | NUR ---
BED LINEN CHANGED AND WASHED PT UP, NG RETURNING YELLOWISH BROWN FLUIDS, BLOOD PRESSURE IMPROVING. PT SITTING UP IN SEMI FOSTER POSITION, WILL FOLLOW STAFF AROUND WITH EYES. DOPAMINE AND LEVOPHED STILL INFUSING.
--- NOTE | 2021-04-12 11:35 | NUR ---
DECREASED DOPAMINE TO 5 MCG PER KG. WILL WATCH BLOOD PRESSURE.
--- NOTE | 2021-04-12 12:06 | NUR ---
INCREASED DOPAMINE BACK TO 10 FOR BLOOD PRESSURE DECREASE TO 95/56
--- NOTE | 2021-04-12 13:17 | NUR ---
PT LAYING ON BACK WITH WHITNEY HUGGER TILL ON. DOPAMINE AND LEVOPHED INFUSING. NG TUBE DRAINING SECRETIONS.
--- NOTE | 2021-04-12 14:05 | NUR ---
trying to decrease levophed, it b/p maintaines will continue to wean pt off.
--- NOTE | 2021-04-12 14:30 | NUR ---
UNABLE DUE TO DECREASING BLOOD PRESSURES TO WEAN PT DOWN ON HIS DOPAMINE OR LEVOPHED AT THIS TIME. DOPAMINE BACK TO 10 MCG AND LEVOPHED TO 20 MCG
--- NOTE | 2021-04-12 16:45 | NUR ---
PT CONTINUES TO REST, NG TUBE DRAINING. LEVOPHED AND DOPAMINE STILL INFUSING. B/P 150/73
--- NOTE | 2021-04-12 19:30 | NUR ---
PATIENT RESTING WITH EYES CLOSED. EYES OPEN TO NAME AND FOLLOWS SPEAKER. NON-VERBAL, OCC GRUNTS. DOES NOT FOLLOW DIRECTIONS. RESP NON-LABORED. O2 ON AT 3 L NC. O2 SAT 98% BREATH SOUNDS CLEAR, DIMINISHED IN BILATERAL BASES. NGT TO LIS DRAINING GOLD LIQUID. LEROY DRAINS CLEAR PALE YELLOW URINE. NO PERIPHERAL EDEMA,PULSES INTACT. KNEE HIGH TEDS HOSE IN PLACE. RSTLC IN PLACE, DSG CDI, LEVOPHED AND DOPAMINE INFUSING TO TLC. RH IV SITE WITH NS INFUSING AT 150 ML/HR. LAC SITE IS SALINE LOCKED. PHONOGRAPH NEEDLE TIP MAKER SHOWS SR.
--- NOTE | 2021-04-12 21:00 | NUR ---
VSS. RESP NON-LABORED. CALM AND COOPERATIVE.
--- NOTE | 2021-04-12 22:00 | NUR ---
VSS. BP STABLE. LEVOPHED GTT DOWN TO 11 MCG/MIN AND DOAPMINE GTT DOWN TO 2.5 MCG/KG/MIN. WILL CONTINUE TO MONITOR CLOSELY. SR ON MONITOR.
[2021-04-13] VITALS (34 sets, daily range): BP systolic 84–163; BP diastolic 54–99
--- NOTE | 2021-04-13 | NUR ---
PATIENT SOMEWHAT AGITATED. REMOVED O2 AND NGT. REFUSING NG TO BE REINSERTED OR TO WEAR O2. O2 SAT 93% ON RA. WILL MONITOR CLOSELY. ASSISTS WITH TURNING AND REPOSITIONING. VSS.
--- NOTE | 2021-04-13 02:00 | NUR ---
PATIENT RESTING QUIETLY WITH EYES CLOSED. VSS. RESP NON-LABORED.
--- NOTE | 2021-04-13 04:00 | NUR ---
TURNED AND REPOSITIONED. VSS. RESP NON-LABORED. SR ON MONITOR.
--- NOTE | 2021-04-13 06:00 | NUR ---
AWAKENS TO NAME. TURNED AND REPOSITIONED. VSS.
[2021-04-13 06:26] LABS: BUN 7 mg/dL (8-23); BUN/CREATININE RATIO 10 (12-20 (CALC)); CHLORIDE 110 mmol/l (95-108); CREATININE 0.7 mg/dL (0.7-1.3); GFR > 60 ML/MIN (>=60 (CALC)); GFR FOR AFR.AMER. > 60 ML/MIN (>=60 (CALC)); MAGNESIUM 1.7 mg/dL (1.6-2.3); SODIUM 138 mmol/l (137-146)
[2021-04-13 06:29] LABS: ANION GAP 7 (6-22 (CALC)); CARBON DIOXIDE 25 mmol/l (22-30); POTASSIUM 3.5 mmol/l (3.5-5.1)
[2021-04-13 06:43] LABS: HEMATOCRIT 25.9 % (39.0-50.0); HEMOGLOBIN 8.4 g/dl (14.0-18.0); IMMATURE GRANULOCYTES 0.3 % (0.0-5.0); MEAN CELL VOLUME 89.6 fL CALC (80.0-100.0); MEAN CORPUSCULAR HGB 29.1 pG CALC (26.0-32.0); MEAN CORPUSCULAR HGB CONC 32.4 g/dL CAL (32.0-36.0); NEUT# 13.41 thou/uL (1.82-7.42); RED BLOOD COUNT 2.89 mill/uL (4.70-6.10); RED CELL DISTRI WIDTH 15.9 % (11.5-15.5)
--- NOTE | 2021-04-13 07:20 | NUR ---
pt resting in bed with eyes closed; arousable to verbal stimuli; no apparent distress noted; assessment completed at this time; pt alert to name, nonverbal; pt does grunt; no n/v noted at this time; no s/sx/ grimaces of pain noted; resp even and unlabored; lungs clear/diminished; skin color wnl; o2 per nc at 3L; fnps cough noted; suction at bedside; hr reg; wk pedal pulses; no edema noted; sr on monitor; abd soft with bs present; no bm noted per ghost writer; pimentel to gravity draining clear yellow urine; #20 to lac, #18 to rac saline locked; #22 to rw with ivf infusing without complication; TLC to left subclavian with dopamine gtt at 2.5mcg/kg/min and levophed at 10 mcg/min infusing without complication; no redness or edema noted at sites; repositioned; will continue to monitor
--- NOTE | 2021-04-13 08:00 | NUR ---
SXN PT FOR SCANT AMT THICK WHITE C ORAL SXN DEVICE. NAD. VSS. NASRIN NEB THERAPY WELL AT THIS TIME. MEDICAL CENTER REPRESENTATIVE TO MONITOR.
--- NOTE | 2021-04-13 08:15 | NUR ---
resting in bed with eyes closed; no apparent distress noted; sr on monitor; will continue to monitor
--- NOTE | 2021-04-13 08:40 | NUR ---
Dr Resendiz present at bedside to assess pt and discuss plan of care
--- NOTE | 2021-04-13 10:15 | NUR ---
resting in bed with eyes closed; sr on monitor; iv intact and patent; dopamine gtt weaned at this time; pimentel to gravity; sr on monitor; call light within reach; will continue to monitor
--- NOTE | 2021-04-13 11:00 | NUR ---
1100-: pt transported to ct scan via bed with portable o2 and levophed gtt; traffic monitor specialist intact; internal communications writer remains with pt; 1125- pt returned to unit in stable condition; pt moving throughout exam; monitoring attachments applied; sr on monitorl; reposotioned to left side; will continue to monitor
--- NOTE | 2021-04-13 11:06 | NUR ---
S: BOLA ISMON is a 61 M who presents with pneumonia. He has a history of seizure disorder, developmentally delayed HH, gerd, and iron deficiency anemia. All medications in patient's chart were reviewed. O: VS: BP 114/74 mmHg, P 84 bpm, RR 12 bpm, T 96.8 F W 63 kg, HT 167.64 cm, Scr= 0.7 mg/dL, CrCl= 97.5 ml/min Vancomycin Trough: 13 mcg/ml A: Preliminary blood culture shows no growth. P: Patient is on Zosyn 4.5 g IV Q6H. Vancomycin ordered for pharmacy to dose. Continue Vancomycin 1 g IV Q12H. Vancomycin trough is to be redrawn on 04/14/21 at 1800. Vancomycin goal trough is between 15-20 mcg/ml. Pharmacy will follow and or advise on antibiotics use as needed.
--- NOTE | 2021-04-13 11:40 | NUR ---
weaned nc from 3lpm to 2lpm as per pt spo2 =98. tiana well at this time. nad noted. pt resting comfortable at this time. vending service technician to monitor.
--- NOTE | 2021-04-13 12:05 | NUR ---
pt resting in bed on left side; no apparent distress noted; sr on monitor; pimentel to gravity; o2 per nc; iv intact and patent; call light within reach; will continue to monitor
--- NOTE | 2021-04-13 14:00 | NUR ---
no distress noted; sr on monitor; pimentel to gravity; will continue to monitor
--- NOTE | 2021-04-13 16:00 | NUR ---
awake in bed; sr on monitor; pimentel to gravity; repositioned; will continue to monitor
--- NOTE | 2021-04-13 18:09 | NUR ---
awake in bed; repositioned; sr on monitor; iv intact; pimentel to gravity; call light within reach
--- NOTE | 2021-04-13 20:00 | NUR ---
PATIENT IS AWAKE ON ROUNDS. RESP NON-LABORED. O2 ON AT 3 L NC. BREATH SOUNDS CLEAR, DIMINISHED IN BIALTERAL BASES. PATIENT CALMA ND COOPERATIVE. NON-VERBAL, MAKES GRUNTING SOUNDS. LSCTLC IN PLACE WITH NS INFUSING AT 125 ML/HR AND DOPAMINE GTT RESUMED AT 2 MCG/MIN FOR HYPOTENSION. BILATERAL DUNIA HOSE IN PLACE. NO PERIPHERAL EDEMA. NET REPAIRER SHOWS SR.
--- NOTE | 2021-04-13 22:00 | NUR ---
RESTING QUIETLY IN BED. VSS. RESP NON-LABORED.
[2021-04-14] VITALS (17 sets, daily range): BP systolic 105–169; BP diastolic 70–103
--- NOTE | 2021-04-14 | NUR ---
VSS. LEVOPHED GTT DC'D. NS CONTINUES TO INFUSE AT 150 ML/HR INTO LSCTLC. SR ON MONITOR.
--- NOTE | 2021-04-14 02:00 | NUR ---
PAITENT RESTS WITH EYES CLSOED FOR SHORT INTERVALS. CALM AND COOPERATIVE WHEN AWAKE.
--- NOTE | 2021-04-14 04:00 | NUR ---
PATIENT AWAKE WITH FREQ GRUNTING AND GROANING. FREQ TURNING AND REPOSITIONING THROUGHOUT THE NIGHT. VSS.
--- NOTE | 2021-04-14 05:00 | NUR ---
COMPLETE BED BATH AND LINENES CHANGED BY GL ACCOUNTANT'S.
[2021-04-14 05:50] LABS: IMMATURE GRANULOCYTES 0.3 % (0.0-5.0); MEAN CELL VOLUME 88.5 fL CALC (80.0-100.0); MEAN CORPUSCULAR HGB 29.5 pG CALC (26.0-32.0); MEAN CORPUSCULAR HGB CONC 33.3 g/dL CAL (32.0-36.0); NEUT# 8.59 thou/uL (1.82-7.42); RED BLOOD COUNT 3.05 mill/uL (4.70-6.10); RED CELL DISTRI WIDTH 15.9 % (11.5-15.5)
[2021-04-14 06:12] LABS: ANION GAP 8 (6-22 (CALC)); BUN 7 mg/dL (8-23); BUN/CREATININE RATIO 9 (12-20 (CALC)); CARBON DIOXIDE 26 mmol/l (22-30); CHLORIDE 111 mmol/l (95-108); CREATININE 0.8 mg/dL (0.7-1.3); GFR > 60 ML/MIN (>=60 (CALC)); GFR FOR AFR.AMER. > 60 ML/MIN (>=60 (CALC)); MAGNESIUM 1.8 mg/dL (1.6-2.3); POTASSIUM 3.4 mmol/l (3.5-5.1); SODIUM 142 mmol/l (137-146)
--- NOTE | 2021-04-14 07:45 | NUR ---
pt awake in bed; no apparent distress noted; assessment completed at site; pt alert to person; nod head to yes or no questions; very cheerful this am; grunts frequent with staff in room; resp even and unlabored; lungs coarse/ diminished bases; skin color wnl; ra; hr reg; wk pedal pulses; no edema noted; sr on monitor; abd firm with bs present; no bm noted per television writer; pimentel to gravity draining clear yellow urine; TLC patent to left subclav with ivf infusing without complication; no redness or edema noted at site; repositioned; hob elevated; thickened juice provided for glucose of 61; call light within reach; will continue to monitor
--- NOTE | 2021-04-14 09:50 | NUR ---
Dr Keita present at bedside to assess pt
--- NOTE | 2021-04-14 10:00 | NUR ---
awake in bed; no apparent distress noted; iv intact and patent; sr on monitor; pimentel to gravity; call light within reach; will continue to monitor
--- NOTE | 2021-04-14 12:00 | NUR ---
awake in bed; cleansed for lg loose brown stool; bath and linen change done; sr on monitor; ra; iv intact and patent; pimentel to gravity; call light within reach; will continue to monitor
--- NOTE | 2021-04-14 14:20 | NUR ---
pt awake in bed moaning/grunting loudly; iv intact and patent; no redness or edema noted at site; sr on monitor; pimentel to gravity; cleansed for lg loose brown bm; pimentel care; repositioned; will continue to monitor
--- NOTE | 2021-04-14 16:10 | NUR ---
resting in bed with eyes closed; no apparent distress noted; sr on monitor; pimentel to gravity; ra; will continue to monitor
--- NOTE | 2021-04-14 19:00 | NUR ---
REPORT RECEIVED Candice MARTINEZ RN, CARE OF PT ASSUMED AT THIS TIME.
--- NOTE | 2021-04-14 19:54 | NUR ---
POINT OF CARE GLUCOSE 70mg/dl. PT WITH POOR ORAL INTAKE. DR. MARIO MADE AWARE. ORDER RECEIVED TO CHANGE IVF TO D5NS@125ML/H.
--- NOTE | 2021-04-14 20:00 | NUR ---
PT RESTING IN BED. AWAKE, ALERT, NON-VERBAL. PT MAY GRUNT/MOAN, YELL OUT AND LAUGH. RESPIRATIONS REGULAR AND UNLABORED ON ROOM AIR. APPEARS COMFORTABLE AND IN NO DISTRESS. L-SC TLC WITH DRSG C/D/I. INFUSING D5NS@ 125ML/H. LEROY DRAINING CLEAR YELLOW URINE TO GRAVITY. LEROY TUBING SECURED TO LEG, UNKINKED AND UNOBSTRUCTED. CALL HERNANDEZ PLACED IN REACH. UNSURE IF PT WILL BE ABLE TO USE CALL HERNANDEZ EFFECTIVELY. ROOM PLACEMENT IS IN DIRECT VIEW OF NURSES STATION TO FACILITATE FREQUENT MONITORING.
--- NOTE | 2021-04-14 23:38 | NUR ---
PT APPEARS TO HAVE BEEN STRAINING. CHECKED FOR INCONTINENCE. NO BM NOTED AT THIS TIME.
[2021-04-15] VITALS (15 sets, daily range): BP systolic 119–155; BP diastolic 78–111
--- NOTE | 2021-04-15 00:05 | NUR ---
RESTING WITH EYES CLSOED. RESP NON-LABORED. IV INFUSING WITHOUT INCIDENT. MONITOR SR.
--- NOTE | 2021-04-15 02:00 | NUR ---
PT HAS NOT SLEPT. DOES NOT APPEAR TIRED. AWAKE AND ALERT. RESTING IN BED. APPEARS COMFORTABLE AND IN NO DISTRESS. PT VERBALLY ENCOURAGED TO ATTEMPT TO SLEEP.
--- NOTE | 2021-04-15 04:32 | NUR ---
AM LABS COLLECTED VIA L-SC TLC W/O DIFFICULTY. 400ML CLEAR YELLOW URINE EMPTIED FROM LEROY. NO BM NOTED WHEN CHECKED AT THIS TIME.
[2021-04-15 06:09] LABS: HEMATOCRIT 26.2 % (39.0-50.0); HEMOGLOBIN 8.7 g/dl (14.0-18.0); IMMATURE GRANULOCYTES 0.6 % (0.0-5.0); MEAN CELL VOLUME 88.2 fL CALC (80.0-100.0); MEAN CORPUSCULAR HGB 29.3 pG CALC (26.0-32.0); MEAN CORPUSCULAR HGB CONC 33.2 g/dL CAL (32.0-36.0); NEUT# 6.09 thou/uL (1.82-7.42); RED BLOOD COUNT 2.97 mill/uL (4.70-6.10); RED CELL DISTRI WIDTH 15.8 % (11.5-15.5)
--- NOTE | 2021-04-15 06:15 | NUR ---
LAB RESULT RECEIVED AND ASSESSED. SERUM GLUCOSE 58mg/dl. 250ML BOLUS OF D10% ADMINISTERED.
[2021-04-15 06:28] LABS: ANION GAP 8 (6-22 (CALC)); BUN 6 mg/dL (8-23); BUN/CREATININE RATIO 8 (12-20 (CALC)); CARBON DIOXIDE 25 mmol/l (22-30); CHLORIDE 114 mmol/l (95-108); CREATININE 0.7 mg/dL (0.7-1.3); GFR > 60 ML/MIN (>=60 (CALC)); GFR FOR AFR.AMER. > 60 ML/MIN (>=60 (CALC)); SODIUM 144 mmol/l (137-146)
--- NOTE | 2021-04-15 06:47 | NUR ---
POINT OF CARE GLUCOSE 91mg/dl.
--- NOTE | 2021-04-15 07:40 | NUR ---
pt awake in bed; moaning and grunting frequently; no apparent distress noted; assessment completed at this time; pt alert to person; very cooperative and happy, laughing; no n/v noted; no s/sx/grimaces of pain noted; pt will nod he yes and no; resp even and unlabored; lungs coarse; skin color wnl; ra; suction at bedside; hr reg; wk pedal pulses; no edema noted; sr on monitor; abd firm with bs present; no bm noted per specification writer; pimentel to gravity draining clear yellow urine; TLC patent to left subclav with ivf infusing without complication; no redness or edema noted at site; repositioned; call light within reach; will continue to monitor
--- NOTE | 2021-04-15 09:15 | NUR ---
awake; up to recliner x2 max assist; sr on monitor; will continue to monitor
--- NOTE | 2021-04-15 10:10 | NUR ---
resting in recliner with eyes closed; sr on monitor; iv intact and maintained; pimentel to gravity; call light within reach; will continue to monitor
--- NOTE | 2021-04-15 12:00 | NUR ---
pt resting in recliner with eyes closed; angel apparent distress noted; iv intact; sr on monitor; pimentel to gravity; will continue to monitor
--- NOTE | 2021-04-15 14:05 | NUR ---
awake in recliner; no distress noted; sr on monitor; pimentel to gravity; call light within reach; will continue to monitor
--- NOTE | 2021-04-15 15:20 | NUR ---
back to bed x2 max staff; monitoring attachments intact; will continue to monitor
--- NOTE | 2021-04-15 16:02 | NUR ---
resting in bed with eyes closed; no apparent distress noted; iv intact and patent; sr on monitor; pimentel to gravity; call light within reach; will continue to monitor
--- NOTE | 2021-04-15 18:04 | NUR ---
awake in bed; no apparent distress noted; iv intact and patent; sr on monitor; pimentel to gravity; repositioned for feed;
--- NOTE | 2021-04-15 19:30 | NUR ---
RESTING IN BED. AWAKE, ALERT. FOLLOWS SOME DIRECTIONS. RESP NON-LABORED. BREATH SOUNDS DIMINISHED THROUGHOUT LUNG SALTER. LEROY DRAINS CLEAR YELLOW URINE. NO PERIPHERAL EDEMA, PULSES INTACT. LSCTLC IN PLACE, DSG CDI, D5NS INFUSING AT 125 ML/HR. CARDIAC MOITOR SHOWS SR.
--- NOTE | 2021-04-15 22:00 | NUR ---
RESTING QUIETLY IN BED. CALM AND COOPERATIVE WITH CARE. VSS. MONITOR SR.
--- NOTE | 2021-04-16 | NUR ---
VSS. SR ON MONITOR. IV INFUSING WITHOUT INCIDENT.
[2021-04-16 00:09] VITALS: BP 146/91
--- NOTE | 2021-04-16 02:00 | NUR ---
VSS. SR ON MONITOR. IV INFUSING WITHOUT INCIDENT.
[2021-04-16 04:00] VITALS: BP 146/83
--- NOTE | 2021-04-16 04:00 | NUR ---
PATIENT SLEEPS FOR INTERVALS. CALM AND COOPERATIVE. VSS. SR ON MONITOR.
[2021-04-16 06:03] VITALS: BP 131/73
[2021-04-16 06:05] LABS: ALKALINE PHOSPHATASE 134 u/l (38-126); ANION GAP 7 (6-22 (CALC)); BILIRUBIN, TOTAL 0.2 mg/dL (0.0-1.4); BUN 2 mg/dL (8-23); BUN/CREATININE RATIO 3 (12-20 (CALC)); CARBON DIOXIDE 24 mmol/l (22-30); CHLORIDE 119 mmol/l (95-108); CREATININE 0.7 mg/dL (0.7-1.3); GFR > 60 ML/MIN (>=60 (CALC)); GFR FOR AFR.AMER. > 60 ML/MIN (>=60 (CALC)); POTASSIUM 2.9 mmol/l (3.5-5.1); SGOT/AST 23 u/l (19-48); SODIUM 147 mmol/l (137-146)
[2021-04-16 06:09] LABS: ALBUMIN 2.4 g/dL (3.2-5.0); TOTAL PROTEIN 5.4 g/dL (6.3-8.2)
[2021-04-16 06:10] LABS: HEMATOCRIT 24.2 % (39.0-50.0); HEMOGLOBIN 8.1 g/dl (14.0-18.0); IMMATURE GRANULOCYTES 0.5 % (0.0-5.0); MEAN CELL VOLUME 87.4 fL CALC (80.0-100.0); MEAN CORPUSCULAR HGB 29.2 pG CALC (26.0-32.0); MEAN CORPUSCULAR HGB CONC 33.5 g/dL CAL (32.0-36.0); NEUT# 5.63 thou/uL (1.82-7.42); RED BLOOD COUNT 2.77 mill/uL (4.70-6.10)
--- NOTE | 2021-04-16 06:11 | NUR ---
LINENS STRAIGHTENED. REPOSITIONED. LIPS AND MOUTH VERY DRY. ORAL CARE PROVIDED. ASSISTED PATIENT WITH APPLE JUICE IN SIPPY CUP.
--- NOTE | 2021-04-16 07:00 | NUR ---
REPORT RECEIVED FROM JESSI SOW. CARE ASSUMED.
--- NOTE | 2021-04-16 07:15 | NUR ---
PATIENT RESTING IN BED WITH EYES CLOSED. PATIENT AROUSES TO VERBAL STIMULI. PATIENT IS ALERT. PATIENT IS NON VERBAL UNABLE TO ASSESS ORIENTATION STATUS. SHIFT ASSESSEMNT COMPLETED AT THIS TIME. IV PATENT X1. CALL LIGHT IN REACH. WILL CONTINUE TO MONITOR.
[2021-04-16 08:00] VITALS: BP 121/85
--- NOTE | 2021-04-16 08:00 | NUR ---
PATIENT SET UP FOR AM MEAL AT THIS TIME. MANAGER PULMONARY AT BEDSIDE TO ASSIST PATIENT IN FEEDING PATIENT NOT WANTING TO EAT. WILL TYR AGAIN LATER.
--- NOTE | 2021-04-16 09:22 | NUR ---
DR WEEKS AT BEDSIDE TO DISCUSS PLAN OF CARE.
[2021-04-16 12:00] VITALS: BP 124/86
--- NOTE | 2021-04-16 12:00 | NUR ---
PATIENT SET UP FOR LUNCH MEAL AND CAKE INSPECTOR AT BEDSIDE ASSISTING IN FEEDING PATIENT.
[2021-04-16] MEDS ORDERED: AUGMENTIN500TAB PO (13:17)
--- NOTE | 2021-04-16 13:35 | NUR ---
CALLED [facility] FOR DC AND THEY WILL HAVE STAFF AVAILABLE AFTER 1400
--- NOTE | 2021-04-16 14:06 | NUR ---
DISCHARGE REVIEWED WITH MILLIE CORDERO
--- NOTE | 2021-04-16 14:12 | NUR ---
Discharge instructions given. Patient verbalizes understanding of same. Discharged in stable condition via Wheelchair to Home with staff. All belongings sent with pt.
== END 2021-04-16 14:12 | disposition short-term general hospital (02) | DRG 871 ==
LOC: ED 12:37 → ED-I 13:20 → ED 15:45 → ICU 15:46
PROVIDERS: Emergency Medicine; Internal Medicine; Nurse Practitioner; ADMIT Internal Medicine; ATTEND Internal Medicine
PROC: 0T9B70Z Drainage of Bladder with Drainage Device, Via Natural or Artificial Opening (ICD-10-PCS; principal; 2021-04-11)
PROC: 02HV33Z Insertion of Infusion Device into Superior Vena Cava, Percutaneous Approach (ICD-10-PCS; 2021-04-11)
DX: A41.9 Sepsis, unspecified organism (principal); R65.21 Severe sepsis with septic shock; J69.0 Pneumonitis due to inhalation of food and vomit; F72 Severe intellectual disabilities; E87.1 Hypo-osmolality and hyponatremia; R68.0 Hypothermia, not associated with low environmental temperature; I95.9 Hypotension, unspecified; G40.909 Epilepsy, unspecified, not intractable, without status epilepticus; K21.9 Gastro-esophageal reflux disease without esophagitis; K59.09 Other constipation; K44.9 Diaphragmatic hernia without obstruction or gangrene; T42.0X5A Adverse effect of hydantoin derivatives, initial encounter; Z87.01 Personal history of pneumonia (recurrent); Z20.822 Contact with and (suspected) exposure to COVID-19
CPT/HCPCS: J1650; S0164

== ENCOUNTER 2021-04-30 12:36 | Emergency (ER) | payer MEDICARE, MEDICAID ==
[~2021-04-30] VITALS: Ht 167.6 cm; Wt 78.0 kg
[~2021-04-30 12:36] MED LIST changes: +AUGMENTIN500TAB PO; +KEFLEX500 MG PO
[2021-04-30 12:39] VITALS: BP 161/96
[2021-04-30] MEDS ORDERED: PREDNISONE50 MG PO (17:40)
[2021-04-30] MEDS ORDERED: BENADRYL25 M1 PO (17:40)
== END 2021-04-30 18:45 | disposition home or self-care (01) ==
LOC: ED 12:36
DX: L27.1 Localized skin eruption due to drugs and medicaments taken internally (principal); T42.0X5A Adverse effect of hydantoin derivatives, initial encounter; G40.909 Epilepsy, unspecified, not intractable, without status epilepticus; R62.50 Unspecified lack of expected normal physiological development in childhood; K21.9 Gastro-esophageal reflux disease without esophagitis; Y92.099 Unspecified place in other non-institutional residence as the place of occurrence of the external cause

== ENCOUNTER 2021-08-20 17:08 | Inpatient (IN) | payer MEDICARE, MEDICAID ==
[2021-08-20] VITALS (11 sets, daily range): BP systolic 106–145; BP diastolic 76–94
[~2021-08-20] VITALS: Ht 167.6 cm; Wt 55.0 kg
[~2021-08-20 17:08] MED LIST changes: +BENADRYL25 M1 PO; -DILANTIN100 MG OR; -FOLIC ACID1 MG OR; +PHENYTOIN EX100 M1 PO; +PREDNISONE50 MG PO
[2021-08-20 22:11] LABS: HEMATOCRIT 29.5 % (39.0-50.0); HEMOGLOBIN 9.8 g/dl (14.0-18.0); IMMATURE GRANULOCYTES 0.5 % (0.0-5.0); MEAN CELL VOLUME 84.5 fL CALC (80.0-100.0); MEAN CORPUSCULAR HGB 28.1 pG CALC (26.0-32.0); MEAN CORPUSCULAR HGB CONC 33.2 g/dL CAL (32.0-36.0); NEUT# 13.95 thou/uL (1.82-7.42); RED BLOOD COUNT 3.49 mill/uL (4.70-6.10); RED CELL DISTRI WIDTH 20.6 % (11.5-15.5)
[2021-08-20 22:28] LABS: AMYLASE 134 u/l (30-110); CARBON DIOXIDE 23 mmol/l (22-30); LIPASE 453 u/l (23-300); POTASSIUM 3.4 mmol/l (3.5-5.1); SGOT/AST 33 u/l (19-48)
[2021-08-20 22:31] LABS: URINE BILIRUBIN - DIPSTICK NEGATIVE (NEGATIVE); URINE BLOOD DIPSTICK MODERATE (NEGATIVE); URINE COLOR YELLOW; URINE GLUCOSE - DIPSTICK NEGATIVE (NEGATIVE); URINE KETONE NEGATIVE (NEGATIVE); URINE PH 5.5 (4.5-8.0); URINE PROTEIN - DIPSTICK 30 mg/dL (NEG-TRACE); URINE SPECIFIC GRAVITY 1.015
[2021-08-20 22:31] LABS: ACT PARTIAL THROMBO TIME 28.8 SECONDS (20.0-32.5); INTERNATIONAL NORMALIZED RATIO 1.3 RATIO (0.7-1.3); PROTHROMBIN TIME 12.9 SECONDS (9.0-12.5)
[2021-08-20 22:33] LABS: URINE LEUK ESTERASE MODERATE (NEGATIVE); URINE NITRITE - DIPSTICK NEGATIVE (Negative)
[2021-08-20 22:43] LABS: URINE BACTERIA MODERATE hpf; URINE WBC 20-50 WBC/hpf (0-5)
[2021-08-20 22:44] LABS: ALBUMIN 3.5 g/dL (3.2-5.0); ALKALINE PHOSPHATASE 237 u/l (38-126); ANION GAP 14 (6-22 (CALC)); BILIRUBIN, TOTAL 0.6 mg/dL (0.0-1.4); BUN 38 mg/dL (8-23); BUN/CREATININE RATIO 21 (12-20 (CALC)); CHLORIDE 102 mmol/l (95-108); CREATININE 1.8 mg/dL (0.7-1.3); GFR FOR AFR.AMER. 46 ML/MIN (>=60 (CALC)); GFR OTHER RACES 38 ML/MIN (>=60 (CALC)); SODIUM 136 mmol/l (137-146); TOTAL PROTEIN 7.7 g/dL (6.3-8.2)
[2021-08-21] VITALS (14 sets, daily range): BP systolic 99–155; BP diastolic 70–98
[2021-08-21 05:30] LABS: HEMATOCRIT 31.1 % (39.0-50.0); HEMOGLOBIN 10.4 g/dl (14.0-18.0); MEAN CELL VOLUME 82.9 fL CALC (80.0-100.0); MEAN CORPUSCULAR HGB 27.7 pG CALC (26.0-32.0); MEAN CORPUSCULAR HGB CONC 33.4 g/dL CAL (32.0-36.0); RED BLOOD COUNT 3.75 mill/uL (4.70-6.10)
[2021-08-21 05:44] LABS: CREATININE 1.6 mg/dL (0.7-1.3); POTASSIUM 2.9 mmol/l (3.5-5.1)
[2021-08-21 05:46] LABS: MAGNESIUM 2.2 mg/dL (1.6-2.3)
[2021-08-22] VITALS (8 sets, daily range): BP systolic 127–160; BP diastolic 81–96
[2021-08-22 05:53] LABS: HEMATOCRIT 29.9 % (39.0-50.0); IMMATURE GRANULOCYTES 0.8 % (0.0-5.0); MEAN CELL VOLUME 83.3 fL CALC (80.0-100.0); MEAN CORPUSCULAR HGB 27.9 pG CALC (26.0-32.0); MEAN CORPUSCULAR HGB CONC 33.4 g/dL CAL (32.0-36.0); NEUT# 10.29 thou/uL (1.82-7.42); RED BLOOD COUNT 3.59 mill/uL (4.70-6.10); RED CELL DISTRI WIDTH 20.6 % (11.5-15.5)
[2021-08-22 05:54] LABS: ALKALINE PHOSPHATASE 240 u/l (38-126); BUN 28 mg/dL (8-23); BUN/CREATININE RATIO 24 (12-20 (CALC)); CARBON DIOXIDE 19 mmol/l (22-30); CHLORIDE 114 mmol/l (95-108); CREATININE 1.2 mg/dL (0.7-1.3); GFR FOR AFR.AMER. > 60 ML/MIN (>=60 (CALC)); GFR OTHER RACES > 60 ML/MIN (>=60 (CALC)); SGOT/AST 30 u/l (19-48); SODIUM 143 mmol/l (137-146)
[2021-08-22 06:04] LABS: ALBUMIN 2.5 g/dL (3.2-5.0); ANION GAP 14 (6-22 (CALC)); BILIRUBIN, TOTAL 1.6 mg/dL (0.0-1.4); POTASSIUM 3.6 mmol/l (3.5-5.1); TOTAL PROTEIN 5.8 g/dL (6.3-8.2)
[2021-08-22] MEDS ORDERED: LORATADINE10 M1 PO (07:22)
[2021-08-22] MEDS ORDERED: CALCIUM + D PO (07:22)
[2021-08-22] MEDS ORDERED: MIRALAX MIX-IN17 GM PO (07:23)
[2021-08-23] VITALS (8 sets, daily range): BP systolic 128–162; BP diastolic 82–97
[2021-08-23 05:33] LABS: HEMATOCRIT 27.7 % (39.0-50.0); HEMOGLOBIN 9.1 g/dl (14.0-18.0); IMMATURE GRANULOCYTES 0.8 % (0.0-5.0); MEAN CELL VOLUME 83.2 fL CALC (80.0-100.0); MEAN CORPUSCULAR HGB 27.3 pG CALC (26.0-32.0); MEAN CORPUSCULAR HGB CONC 32.9 g/dL CAL (32.0-36.0); NEUT# 11.77 thou/uL (1.82-7.42); RED BLOOD COUNT 3.33 mill/uL (4.70-6.10); RED CELL DISTRI WIDTH 20.8 % (11.5-15.5)
[2021-08-23 05:47] LABS: ANION GAP 16 (6-22 (CALC)); BUN 25 mg/dL (8-23); BUN/CREATININE RATIO 24 (12-20 (CALC)); CARBON DIOXIDE 17 mmol/l (22-30); CHLORIDE 119 mmol/l (95-108); GFR FOR AFR.AMER. > 60 ML/MIN (>=60 (CALC)); GFR OTHER RACES > 60 ML/MIN (>=60 (CALC)); MAGNESIUM 2.3 mg/dL (1.6-2.3); POTASSIUM 3.2 mmol/l (3.5-5.1); SODIUM 149 mmol/l (137-146)
[2021-08-24] VITALS: BP 155/84
[2021-08-24 04:34] VITALS: BP 149/87
[2021-08-24 05:16] LABS: HEMATOCRIT 31.4 % (39.0-50.0); HEMOGLOBIN 10.2 g/dl (14.0-18.0); IMMATURE GRANULOCYTES 0.5 % (0.0-5.0); MEAN CELL VOLUME 84.2 fL CALC (80.0-100.0); MEAN CORPUSCULAR HGB 27.3 pG CALC (26.0-32.0); MEAN CORPUSCULAR HGB CONC 32.5 g/dL CAL (32.0-36.0); NEUT# 9.59 thou/uL (1.82-7.42); RED BLOOD COUNT 3.73 mill/uL (4.70-6.10); RED CELL DISTRI WIDTH 21.6 % (11.5-15.5)
[2021-08-24 05:34] LABS: ALBUMIN 2.6 g/dL (3.2-5.0); ALKALINE PHOSPHATASE 219 u/l (38-126); ANION GAP 15 (6-22 (CALC)); BILIRUBIN, TOTAL 0.7 mg/dL (0.0-1.4); BUN 16 mg/dL (8-23); BUN/CREATININE RATIO 18 (12-20 (CALC)); CARBON DIOXIDE 20 mmol/l (22-30); CHLORIDE 124 mmol/l (95-108); CREATININE 0.9 mg/dL (0.7-1.3); GFR FOR AFR.AMER. > 60 ML/MIN (>=60 (CALC)); GFR OTHER RACES > 60 ML/MIN (>=60 (CALC)); POTASSIUM 3.4 mmol/l (3.5-5.1); SGOT/AST 23 u/l (19-48); SODIUM 155 mmol/l (137-146); TOTAL PROTEIN 6.2 g/dL (6.3-8.2)
[2021-08-24 07:40] VITALS: BP 151/97
[2021-08-24] MEDS ORDERED: AZITHROMYCIN500 MG PO (08:23)
[2021-08-24] MEDS ORDERED: CIPROFLOXACN500 MG PO (08:24)
[2021-08-24 10:51] VITALS: BP 159/85
[2021-08-24] MEDS ORDERED: ZITHROMAX250 MG PO (11:18)
== END 2021-08-24 15:20 | disposition short-term general hospital (02) | DRG 194 ==
LOC: ED 17:08 → ED-I 08-21 01:15 → ED 08-21 01:39 → MS2 08-21 01:40
PROVIDERS: Nurse Practitioner; ADMIT Hospitalist; ATTEND Hospitalist
PROC: 0T9B70Z Drainage of Bladder with Drainage Device, Via Natural or Artificial Opening (ICD-10-PCS; principal; 2021-08-20)
DX: J18.9 Pneumonia, unspecified organism (principal); N39.0 Urinary tract infection, site not specified; N17.9 Acute kidney failure, unspecified; E86.0 Dehydration; E87.6 Hypokalemia; R62.50 Unspecified lack of expected normal physiological development in childhood; G40.909 Epilepsy, unspecified, not intractable, without status epilepticus; D50.9 Iron deficiency anemia, unspecified; K21.9 Gastro-esophageal reflux disease without esophagitis; B96.20 Unspecified Escherichia coli [E. coli] as the cause of diseases classified elsewhere; Z20.822 Contact with and (suspected) exposure to COVID-19
CPT/HCPCS: G0378

== ENCOUNTER 2021-09-01 13:49 | Emergency (ER) | payer MEDICARE, MEDICAID ==
[~2021-09-01] VITALS: Ht 167.6 cm; Wt 56.0 kg
[~2021-09-01 13:49] MED LIST changes: +AZITHROMYCIN500 MG PO; +CALCIUM + D PO; +LORATADINE10 M1 PO; +MIRALAX MIX-IN17 GM PO
[2021-09-01 14:06] VITALS: BP 114/72
[2021-09-01 14:30] VITALS: BP 108/77
[2021-09-01 14:47] LABS: HEMATOCRIT 33.2 % (39.0-50.0); HEMOGLOBIN 10.1 g/dl (14.0-18.0); IMMATURE GRANULOCYTES 0.4 % (0.0-5.0); MEAN CELL VOLUME 90.2 fL CALC (80.0-100.0); MEAN CORPUSCULAR HGB 27.4 pG CALC (26.0-32.0); MEAN CORPUSCULAR HGB CONC 30.4 g/dL CAL (32.0-36.0); NEUT# 6.07 thou/uL (1.82-7.42); RED BLOOD COUNT 3.68 mill/uL (4.70-6.10)
[2021-09-01 15:00] VITALS: BP 123/77
[2021-09-01 15:09] LABS: ALBUMIN 3.3 g/dL (3.2-5.0); ALKALINE PHOSPHATASE 162 u/l (38-126); ANION GAP 11 (6-22 (CALC)); BUN 8 mg/dL (8-23); BUN/CREATININE RATIO 10 (12-20 (CALC)); CARBON DIOXIDE 26 mmol/l (22-30); CHLORIDE 107 mmol/l (95-108); CREATININE 0.8 mg/dL (0.7-1.3); GFR FOR AFR.AMER. > 60 ML/MIN (>=60 (CALC)); GFR OTHER RACES > 60 ML/MIN (>=60 (CALC)); POTASSIUM 3.8 mmol/l (3.5-5.1); SGOT/AST 46 u/l (19-48); SODIUM 141 mmol/l (137-146); TOTAL PROTEIN 7.9 g/dL (6.3-8.2)
[2021-09-01 15:10] LABS: BILIRUBIN, TOTAL 0.6 mg/dL (0.0-1.4)
[2021-09-01 15:30] VITALS: BP 115/85
[2021-09-01 16:00] VITALS: BP 126/89
== END 2021-09-01 16:22 | disposition home or self-care (01) ==
LOC: ED 13:49
PROVIDERS: Family Medicine
DX: Z03.89 Encounter for observation for other suspected diseases and conditions ruled out (principal); R62.50 Unspecified lack of expected normal physiological development in childhood; G40.909 Epilepsy, unspecified, not intractable, without status epilepticus; K21.9 Gastro-esophageal reflux disease without esophagitis; D50.9 Iron deficiency anemia, unspecified

== ENCOUNTER 2022-09-03 09:26 | Inpatient (IN) | payer OTHER, MEDICARE, MEDICAID ==
[2022-09-03] VITALS (25 sets, daily range): BP systolic 79–179; BP diastolic 42–144
[~2022-09-03] VITALS: Ht 167.6 cm; Wt 60.9 kg
--- NOTE | 2022-09-03 09:26 | NUR ---
PT ARRIVED VIA WHEELCHAIR WITH HIS CAREGIVER FROM THE HALF-WAY. PT IS NOT WANTING TO COOPERATE AND FOLLOW THE COMMANDS WITH STAFF. CROUCHING OCCASIONALLY INTO THE POSITION AND HOLDING HIS BREATH.PT TEMP IS 94.8 TEMPORAL. UNABLE TO OBTAIN A RECTAL, ORAL, OR AXILLARY TEMPATURE
--- NOTE | 2022-09-03 10:20 | NUR ---
ASSUMED CARE OF THE PT AT THIS TIME
[2022-09-03 10:31] LABS: BASO% 0.3 % (0-3); EOS% 0.2 % (0-8); HEMATOCRIT 35.3 % (39.0-50.0); HEMOGLOBIN 11.6 g/dl (14.0-18.0); IMMATURE GRANULOCYTES 0.3 % (0.0-5.0); LYMPH% 8.4 % (15-41); MEAN CELL VOLUME 88.7 fL CALC (80.0-100.0); MEAN CORPUSCULAR HGB 29.1 pG CALC (26.0-32.0); MEAN CORPUSCULAR HGB CONC 32.9 g/dL CAL (32.0-36.0); NEUT# 9.81 thou/uL (1.82-7.42); NEUT% 82.8 % (42-76); RED BLOOD COUNT 3.98 mill/uL (4.70-6.10); RED CELL DISTRI WIDTH 17.5 % (11.5-15.5)
[2022-09-03] MEDS ORDERED: LOTRISONE CREAM15 G1 EX (10:36)
[2022-09-03] MEDS ORDERED: ENSURE CLEAR PO (10:37)
[2022-09-03 10:41] LABS: INTERNATIONAL NORMALIZED RATIO 1.2 RATIO (0.7-1.3); PROTHROMBIN TIME 11.9 SECONDS (9.0-12.5)
[2022-09-03 10:45] LABS: ALBUMIN 3.7 g/dL (3.2-5.0); ALKALINE PHOSPHATASE 217 u/l (38-126); ANION GAP 14 (6-22 (CALC)); BUN 20 mg/dL (8-23); BUN/CREATININE RATIO 26 (12-20 (CALC)); C-REACTIVE PROTEIN 8.7 mg/dL (0-0.9); CARBON DIOXIDE 26 mmol/l (22-30); CHLORIDE 101 mmol/l (95-108); CREATININE 0.8 mg/dL (0.7-1.3); GFR FOR AFR.AMER. > 60 ML/MIN (>=60 (CALC)); GFR OTHER RACES > 60 ML/MIN (>=60 (CALC)); POTASSIUM 3.7 mmol/l (3.5-5.1); SGOT/AST 46 u/l (19-48); SODIUM 137 mmol/l (137-146); TOTAL PROTEIN 7.6 g/dL (6.3-8.2)
[2022-09-03 10:48] LABS: BILIRUBIN, TOTAL 0.2 mg/dL (0.2-1.3); MAGNESIUM 2.6 mg/dL (1.6-2.3)
[2022-09-03] MEDS ORDERED: AMLODIPINE BESYL5 MG PO (12:56)
[2022-09-03 13:33] LABS: URINE BILIRUBIN - DIPSTICK NEGATIVE (NEGATIVE); URINE BLOOD DIPSTICK NEGATIVE (NEGATIVE); URINE COLOR YELLOW; URINE GLUCOSE - DIPSTICK NEGATIVE (NEGATIVE); URINE KETONE NEGATIVE (NEGATIVE); URINE LEUK ESTERASE NEGATIVE (NEGATIVE); URINE PH 5.5 (4.5-8.0); URINE PROTEIN - DIPSTICK NEGATIVE (NEG-TRACE); URINE SPECIFIC GRAVITY 1.015; URINE UROBILINOGEN - DIPSTICK 0.2 E.U./dL (0.2)
[2022-09-03 13:37] LABS: URINE NITRITE - DIPSTICK NEGATIVE (Negative)
--- NOTE | 2022-09-03 14:44 | NUR ---
Admission Note Report Given to: RICARDO SOW Transported by: Stretcher Transported with: Nurse Patent IV Location: [id number]
--- NOTE | 2022-09-03 14:55 | NUR ---
RECEIVED REPORT FROM ED RN. PT IS RESIDENT AT [facility]. AOx0. H/O SEIZURES. ADMITTED WITH PNEUMONIA.
--- NOTE | 2022-09-03 20:42 | NUR ---
PATIENT AWAKE IN BED. NON VERBAL AT THIS TIME BUT RESPONDS TO NAME. HEAD TO TOE ASSESSMENT COMPLETED. RECEIVED BED BATH FROM SENIOR TECHNICAL SUPPORT ANALYST. SAFETY MEASURES IN PLACE. NEEDS ANTICIPATED BY STAFF.
[2022-09-04] VITALS (7 sets, daily range): BP systolic 132–149; BP diastolic 69–98
--- NOTE | 2022-09-04 02:16 | NUR ---
PATIENT NOTED TO BE YELLING OUT AFTER BEING ASLEEP. PATIENT UNABLE TO VERBALIZE BUT WAS NOTED TO GRIMACE. PATIENT REPOSITIONED AND MEDICATED FOR PAIN. PATIENT CURRENTLY ASLEEP. SAFETY MEASURES IN PLACE. NEEDS ANTICIPATED BY STAFF.
[2022-09-04 05:27] LABS: BASO% 0.5 % (0-3); EOS% 1.2 % (0-8); HEMATOCRIT 33.1 % (39.0-50.0); IMMATURE GRANULOCYTES 0.3 % (0.0-5.0); LYMPH% 24.6 % (15-41); MEAN CORPUSCULAR HGB 29.3 pG CALC (26.0-32.0); MEAN CORPUSCULAR HGB CONC 33.2 g/dL CAL (32.0-36.0); MONO% 8.1 % (2-13); NEUT# 3.8 thou/uL (1.82-7.42); NEUT% 65.3 % (42-76); RED BLOOD COUNT 3.76 mill/uL (4.70-6.10); RED CELL DISTRI WIDTH 17.6 % (11.5-15.5)
[2022-09-04 05:43] LABS: ALBUMIN 3.4 g/dL (3.2-5.0); ALKALINE PHOSPHATASE 211 u/l (38-126); ANION GAP 11 (6-22 (CALC)); BUN 16 mg/dL (8-23); BUN/CREATININE RATIO 16 (12-20 (CALC)); CARBON DIOXIDE 27 mmol/l (22-30); CHLORIDE 107 mmol/l (95-108); GFR FOR AFR.AMER. > 60 ML/MIN (>=60 (CALC)); GFR OTHER RACES > 60 ML/MIN (>=60 (CALC)); MAGNESIUM 2.4 mg/dL (1.6-2.3); POTASSIUM 4.3 mmol/l (3.5-5.1); SGOT/AST 41 u/l (19-48); SODIUM 140 mmol/l (137-146); TOTAL PROTEIN 6.9 g/dL (6.3-8.2)
--- NOTE | 2022-09-04 06:19 | NUR ---
PATIENT AWAKE IN BED. RESPIRATIONS EVEN AND UNLABORED ON ROOM AIR. NO SIGNS OF DISTRESS NOTED. NEEDS ANTICIPATED BY STAFF.
--- NOTE | 2022-09-04 07:22 | NUR ---
RECIEVED BEDSIDE REPORT, PATIENT APPEARS COMFORTABLE, NO S/S OF DISTRESS, WHITEBOARD UPDATED, TAKES PILLS CRUSHED WITH APPLESAUCE, HAS SWALLOWING ISSUES , REPORTED FROM NIGHT NURSE, CAN SWALLOW POILLS PILLS WHOLE IN APPLESAUCE. PATIENT SAFETY MEASURES IN PLACE.
--- NOTE | 2022-09-04 12:00 | NUR ---
PATIENT REPOSITION Q2 HOURS, NS AT 50ML/HR, ATE APPROV 25% OF LUNCH, PUREED DIET REQUESTED, NO S/S OF DISTRESS, PATIENT SAFETY PRECAUTIONS IN PLACE.
--- NOTE | 2022-09-04 19:56 | NUR ---
BEDSIDE REPORT RECEIVED FROM OFF GOING NURSE. PATIENT AWAKE AND ALERT RESTING IN BED. SAFETY MEASURES IN PLACE. RESPIRATIONS EVEN AND UNLABORED ON ROOM AIR.IV FLUIDS IN PLACE. NEEDS ANTICIPATED BY STAFF.
--- NOTE | 2022-09-04 23:38 | NUR ---
PATIENT ASLEEP IN BED. RESPIRATIONS EVEN AND UNLABORED ON ROOM AIR. SAFETY MEASURES IN PLACE. PATIENT UNABLE TO USE CALL LIGHT RELATED TO COGNITIVE IMPAIRMENT. NEEDS ANTICIPATED BY STAFF.
--- NOTE | 2022-09-05 02:03 | NUR ---
PATIENT ASLEEP IN BED. IN NO APPARENT DISTRESS. CALL LIGHT WITHIN REACH. NEEDS ANTICIPATED BY STAFF.
[2022-09-05 04:04] VITALS: BP 163/84
[2022-09-05 05:59] LABS: BASO% 0.6 % (0-3); EOS% 2.2 % (0-8); HEMATOCRIT 33.3 % (39.0-50.0); HEMOGLOBIN 10.9 g/dl (14.0-18.0); IMMATURE GRANULOCYTES 0.3 % (0.0-5.0); LYMPH% 37.9 % (15-41); MEAN CELL VOLUME 89.3 fL CALC (80.0-100.0); MEAN CORPUSCULAR HGB 29.2 pG CALC (26.0-32.0); MEAN CORPUSCULAR HGB CONC 32.7 g/dL CAL (32.0-36.0); MONO% 10.9 % (2-13); NEUT# 1.73 thou/uL (1.82-7.42); NEUT% 48.1 % (42-76); RED BLOOD COUNT 3.73 mill/uL (4.70-6.10); RED CELL DISTRI WIDTH 17.6 % (11.5-15.5)
[2022-09-05 06:19] LABS: ALBUMIN 3.6 g/dL (3.2-5.0); ALKALINE PHOSPHATASE 228 u/l (38-126); ANION GAP 6 (6-22 (CALC)); BUN 17 mg/dL (8-23); BUN/CREATININE RATIO 19 (12-20 (CALC)); CARBON DIOXIDE 26 mmol/l (22-30); CHLORIDE 111 mmol/l (95-108); CREATININE 0.9 mg/dL (0.7-1.3); GFR FOR AFR.AMER. > 60 ML/MIN (>=60 (CALC)); GFR OTHER RACES > 60 ML/MIN (>=60 (CALC)); MAGNESIUM 2.6 mg/dL (1.6-2.3); POTASSIUM 4.1 mmol/l (3.5-5.1); SGOT/AST 41 u/l (19-48); SODIUM 138 mmol/l (137-146); TOTAL PROTEIN 7.5 g/dL (6.3-8.2)
--- NOTE | 2022-09-05 06:37 | NUR ---
PATIENT IS ASLEEP IN BED. RESPIRATIONS EVEN AND UNLABORED. NO SIGNS OF DISTRESS NOTED.
--- NOTE | 2022-09-05 07:34 | NUR ---
RECIEVED BEDSIDE REPORT, IV INTACT, FLUIDS RUNNING, WHITEBOARD UPDATED, NO S/S OF DISTRESS, PATIENT SAFETY MEASURES IN PLACE.
[2022-09-05 07:37] VITALS: BP 149/92
[2022-09-05] MEDS ORDERED: FLOXIN OTIC0.3 % OT (10:03)
[2022-09-05] MEDS ORDERED: OMNICEF300 MG PO (10:03)
--- NOTE | 2022-09-05 12:00 | NUR ---
PATIENT READY TO DISCHARGE UNABLE TO GET [facility] OF [facility]IV[facility]/INTERMEDIATE.NO S/S OF DISTRESS. PATIENT SAFETY MEASURES IN PLACE.
[2022-09-05 15:22] VITALS: BP 122/76
--- NOTE | 2022-09-05 16:39 | NUR ---
OATIENT IN BED, NO S/S OF DISTRESS, UNABLE TO CONNECT CAREGIVER DUE TO PHONE ISSUES, TRIED SEVARAL TIMES TODAY. PATIENT SAFETY MEASURES IN PLACE.
[2022-09-05 19:36] VITALS: BP 98/60
--- NOTE | 2022-09-05 20:44 | NUR ---
BEDSIDE REPORT RECEIVED FROM OFF GOING NURSE. PATIENT ASLEEP IN BED BUT EASILY AROUSED. NO SIGNS OF DISTRESS NOTED AT THIS TIME. PATIENT IS NONVERBAL BUT SMILES AND MAKES EYE CONTACT. NEEDS ANTICIPATED BY STAFF.
[2022-09-05 21:49] VITALS: BP 98/60
--- NOTE | 2022-09-05 23:58 | NUR ---
PATIENT ASLEEP IN BED. RESPIRATIOSN EVEN AND UNLABORED ON ROOM AIR. SAFETY MEASURES IN PLACE. NO SIGNS OF DISTRESS NOTED. NEEDS ANTICIPATED BY STAFF.
[2022-09-06 04:01] VITALS: BP 119/75
--- NOTE | 2022-09-06 04:42 | NUR ---
PATIENT AWAKE IN BED. NOTED TO BE PULLING AT IV. REDIRECTED AND REPOSITIONED. IN NO ACUTE DISTRESS. NEEDS ANTICIPATED BY STAFF.
[2022-09-06 04:43] VITALS: BP 119/75
[2022-09-06 05:58] LABS: BASO% 0.3 % (0-3); EOS% 3.6 % (0-8); HEMATOCRIT 34.7 % (39.0-50.0); HEMOGLOBIN 11.1 g/dl (14.0-18.0); IMMATURE GRANULOCYTES 0.6 % (0.0-5.0); LYMPH% 34.8 % (15-41); MEAN CELL VOLUME 90.8 fL CALC (80.0-100.0); MEAN CORPUSCULAR HGB 29.1 pG CALC (26.0-32.0); MONO% 9.1 % (2-13); NEUT# 1.87 thou/uL (1.82-7.42); NEUT% 51.6 % (42-76); RED BLOOD COUNT 3.82 mill/uL (4.70-6.10); RED CELL DISTRI WIDTH 18.1 % (11.5-15.5)
[2022-09-06 06:23] LABS: ALBUMIN 3.5 g/dL (3.2-5.0); ALKALINE PHOSPHATASE 223 u/l (38-126); ANION GAP 12 (6-22 (CALC)); BUN 16 mg/dL (8-23); BUN/CREATININE RATIO 20 (12-20 (CALC)); CARBON DIOXIDE 26 mmol/l (22-30); CHLORIDE 113 mmol/l (95-108); CREATININE 0.8 mg/dL (0.7-1.3); GFR FOR AFR.AMER. > 60 ML/MIN (>=60 (CALC)); GFR OTHER RACES > 60 ML/MIN (>=60 (CALC)); POTASSIUM 4.2 mmol/l (3.5-5.1); SGOT/AST 50 u/l (19-48); TOTAL PROTEIN 7.4 g/dL (6.3-8.2)
[2022-09-06 06:25] LABS: SODIUM 147 mmol/l (137-146)
[2022-09-06 07:20] VITALS: BP 100/63
--- NOTE | 2022-09-06 08:00 | NUR ---
PT I NBE WITH HOB UP, ALERT AND NON VERBAL. FIELD GAUGER AT BEDSIDE FEEDING PT BREAKFAST. IV TO LEFT WRIST.PT LUNGS CLEAR, ABD SOFT WITH ACTIVE BS. PT HAS BREIF ON FOR INCONTINENCE. ALL SAFETY MEASURES IN PLACE AND CALL LIGHT WIHTIN REACH. WILL CONTINUE TO MONITOR PT, TURN AND REPOSITION.
[2022-09-06 08:44] VITALS: BP 119/75
--- NOTE | 2022-09-06 11:13 | NUR ---
Discharge instructions given. Patient verbalizes understanding of same. Discharged in stable condition via [facility] with *[facility]. All belongings sent with pt.
== END 2022-09-06 11:12 | DRG 194 ==
LOC: ED 09:26 → ED-I 12:30 → ED 13:40 → MS2 13:41
PROVIDERS: Family Medicine; Nurse Practitioner Family; ADMIT Internal Medicine; ATTEND Internal Medicine
DX: J18.9 Pneumonia, unspecified organism (principal); F72 Severe intellectual disabilities; I10 Essential (primary) hypertension; G40.909 Epilepsy, unspecified, not intractable, without status epilepticus; H66.91 Otitis media, unspecified, right ear; Z74.01 Bed confinement status; Z20.822 Contact with and (suspected) exposure to COVID-19

== ENCOUNTER 2022-09-12 08:56 | Inpatient (IN) | payer OTHER, MEDICARE, MEDICAID ==
[~2022-09-12] VITALS: Ht 167.6 cm; Wt 71.8 kg
[2022-09-12] VITALS (150 sets, daily range): BP systolic 69–137; BP diastolic 44–90
[~2022-09-12 08:56] MED LIST changes: +AMLODIPINE BESYL5 MG PO; +FLOXIN OTIC0.3 % OT; +LOTRISONE CREAM15 G1 EX
[2022-09-12 09:53] LABS: ALBUMIN 3.2 g/dL (3.2-5.0); ALKALINE PHOSPHATASE 284 u/l (38-126); BUN 24 mg/dL (8-23); CARBON DIOXIDE 25 mmol/l (22-30); CHLORIDE 104 mmol/l (95-108); POTASSIUM 3.6 mmol/l (3.5-5.1); SGOT/AST 87 u/l (19-48); TOTAL PROTEIN 6.9 g/dL (6.3-8.2)
[2022-09-12 09:58] LABS: BASO% 0.3 % (0-3); EOS% 0.3 % (0-8); HEMATOCRIT 29.3 % (39.0-50.0); HEMOGLOBIN 9.4 g/dl (14.0-18.0); IMMATURE GRANULOCYTES 0.4 % (0.0-5.0); LYMPH% 4.5 % (15-41); MEAN CORPUSCULAR HGB 29.2 pG CALC (26.0-32.0); MEAN CORPUSCULAR HGB CONC 32.1 g/dL CAL (32.0-36.0); MONO% 4.3 % (2-13); NEUT# 15.64 thou/uL (1.82-7.42); NEUT% 90.2 % (42-76); RED BLOOD COUNT 3.22 mill/uL (4.70-6.10); RED CELL DISTRI WIDTH 18.4 % (11.5-15.5)
[2022-09-12 10:00] LABS: ANION GAP 11 (6-22 (CALC)); BILIRUBIN, TOTAL 0.3 mg/dL (0.2-1.3); BUN/CREATININE RATIO 13 (12-20 (CALC)); CREATININE 1.9 mg/dL (0.7-1.3); GFR FOR AFR.AMER. 44 ML/MIN (>=60 (CALC)); GFR OTHER RACES 36 ML/MIN (>=60 (CALC)); SODIUM 136 mmol/l (137-146)
[2022-09-12 10:07] LABS: URINE BILIRUBIN - DIPSTICK NEGATIVE (NEGATIVE); URINE BLOOD DIPSTICK NEGATIVE (NEGATIVE); URINE COLOR YELLOW; URINE GLUCOSE - DIPSTICK NEGATIVE (NEGATIVE); URINE KETONE NEGATIVE (NEGATIVE); URINE LEUK ESTERASE NEGATIVE (NEGATIVE); URINE PROTEIN - DIPSTICK TRACE mg/dL (NEG-TRACE); URINE SPECIFIC GRAVITY >=1.030; URINE UROBILINOGEN - DIPSTICK 0.2 E.U./dL (0.2)
[2022-09-12 10:09] LABS: URINE NITRITE - DIPSTICK NEGATIVE (Negative)
[2022-09-13] VITALS (79 sets, daily range): BP systolic 80–121; BP diastolic 50–76
[2022-09-13 05:22] LABS: BASO% 0.1 % (0-3); EOS% 0.1 % (0-8); HEMATOCRIT 25.8 % (39.0-50.0); HEMOGLOBIN 8.4 g/dl (14.0-18.0); IMMATURE GRANULOCYTES 0.3 % (0.0-5.0); LYMPH% 6.9 % (15-41); MEAN CORPUSCULAR HGB CONC 32.6 g/dL CAL (32.0-36.0); MONO% 4.3 % (2-13); NEUT# 13.04 thou/uL (1.82-7.42); NEUT% 88.3 % (42-76); RED BLOOD COUNT 2.9 mill/uL (4.70-6.10); RED CELL DISTRI WIDTH 17.7 % (11.5-15.5)
[2022-09-13 05:38] LABS: ALBUMIN 2.5 g/dL (3.2-5.0); BILIRUBIN, TOTAL 0.2 mg/dL (0.2-1.3); CREATININE 1.5 mg/dL (0.7-1.3); MAGNESIUM 1.8 mg/dL (1.6-2.3); TOTAL PROTEIN 5.6 g/dL (6.3-8.2)
[2022-09-14] VITALS (58 sets, daily range): BP systolic 79–150; BP diastolic 52–89
[2022-09-14 05:03] LABS: BASO% 0.1 % (0-3); EOS% 1.2 % (0-8); HEMATOCRIT 25.3 % (39.0-50.0); IMMATURE GRANULOCYTES 0.8 % (0.0-5.0); LYMPH% 12.8 % (15-41); MEAN CELL VOLUME 91.3 fL CALC (80.0-100.0); MEAN CORPUSCULAR HGB 28.9 pG CALC (26.0-32.0); MEAN CORPUSCULAR HGB CONC 31.6 g/dL CAL (32.0-36.0); MONO% 5.9 % (2-13); NEUT# 6.87 thou/uL (1.82-7.42); NEUT% 79.2 % (42-76); RED BLOOD COUNT 2.77 mill/uL (4.70-6.10); RED CELL DISTRI WIDTH 18.5 % (11.5-15.5)
[2022-09-14 05:16] LABS: ALBUMIN 2.4 g/dL (3.2-5.0); ALKALINE PHOSPHATASE 271 u/l (38-126); ANION GAP 8 (6-22 (CALC)); BUN 13 mg/dL (8-23); BUN/CREATININE RATIO 12 (12-20 (CALC)); CARBON DIOXIDE 24 mmol/l (22-30); CHLORIDE 114 mmol/l (95-108); CREATININE 1.1 mg/dL (0.7-1.3); GFR FOR AFR.AMER. > 60 ML/MIN (>=60 (CALC)); GFR OTHER RACES > 60 ML/MIN (>=60 (CALC)); MAGNESIUM 1.9 mg/dL (1.6-2.3); POTASSIUM 3.9 mmol/l (3.5-5.1); SGOT/AST 52 u/l (19-48); SODIUM 142 mmol/l (137-146); TOTAL PROTEIN 5.6 g/dL (6.3-8.2)
[2022-09-14 05:18] LABS: BILIRUBIN, TOTAL 0.3 mg/dL (0.2-1.3)
[2022-09-15] VITALS (34 sets, daily range): BP systolic 68–133; BP diastolic 33–90
[2022-09-15 05:53] LABS: BASO% 0.5 % (0-3); EOS% 3.2 % (0-8); HEMATOCRIT 28.4 % (39.0-50.0); HEMOGLOBIN 9.1 g/dl (14.0-18.0); LYMPH% 16.2 % (15-41); MEAN CELL VOLUME 92.5 fL CALC (80.0-100.0); MEAN CORPUSCULAR HGB 29.6 pG CALC (26.0-32.0); MONO% 7.3 % (2-13); NEUT# 4.21 thou/uL (1.82-7.42); NEUT% 71.8 % (42-76); RED BLOOD COUNT 3.07 mill/uL (4.70-6.10); RED CELL DISTRI WIDTH 19.5 % (11.5-15.5)
[2022-09-15 06:04] LABS: ALBUMIN 2.7 g/dL (3.2-5.0); ALKALINE PHOSPHATASE 279 u/l (38-126); ANION GAP 9 (6-22 (CALC)); BILIRUBIN, TOTAL 0.3 mg/dL (0.2-1.3); BUN 13 mg/dL (8-23); BUN/CREATININE RATIO 13 (12-20 (CALC)); CARBON DIOXIDE 24 mmol/l (22-30); CHLORIDE 116 mmol/l (95-108); GFR FOR AFR.AMER. > 60 ML/MIN (>=60 (CALC)); GFR OTHER RACES > 60 ML/MIN (>=60 (CALC)); POTASSIUM 3.7 mmol/l (3.5-5.1); SGOT/AST 48 u/l (19-48); SODIUM 145 mmol/l (137-146)
[2022-09-16] VITALS (192 sets, daily range): BP systolic 71–137; BP diastolic 40–84
[2022-09-16 05:10] LABS: BASO% 0.1 % (0-3); EOS% 0.1 % (0-8); HEMATOCRIT 28.2 % (39.0-50.0); HEMOGLOBIN 8.9 g/dl (14.0-18.0); IMMATURE GRANULOCYTES 0.5 % (0.0-5.0); MEAN CELL VOLUME 92.8 fL CALC (80.0-100.0); MEAN CORPUSCULAR HGB 29.3 pG CALC (26.0-32.0); MEAN CORPUSCULAR HGB CONC 31.6 g/dL CAL (32.0-36.0); NEUT# 10.81 thou/uL (1.82-7.42); NEUT% 79.3 % (42-76); RED BLOOD COUNT 3.04 mill/uL (4.70-6.10); RED CELL DISTRI WIDTH 19.5 % (11.5-15.5)
[2022-09-16 05:20] LABS: ALBUMIN 2.6 g/dL (3.2-5.0); BILIRUBIN, TOTAL 0.3 mg/dL (0.2-1.3); CREATININE 1.5 mg/dL (0.7-1.3); POTASSIUM 3.7 mmol/l (3.5-5.1); TOTAL PROTEIN 6.1 g/dL (6.3-8.2)
[2022-09-17] VITALS (143 sets, daily range): BP systolic 58–174; BP diastolic 31–106
[2022-09-17 06:03] LABS: HEMATOCRIT 28.9 % (39.0-50.0); HEMOGLOBIN 9.3 g/dl (14.0-18.0); MEAN CELL VOLUME 90.6 fL CALC (80.0-100.0); MEAN CORPUSCULAR HGB 29.2 pG CALC (26.0-32.0); MEAN CORPUSCULAR HGB CONC 32.2 g/dL CAL (32.0-36.0); RED BLOOD COUNT 3.19 mill/uL (4.70-6.10); RED CELL DISTRI WIDTH 19.5 % (11.5-15.5)
[2022-09-17 06:20] LABS: ALBUMIN 2.6 g/dL (3.2-5.0); ALKALINE PHOSPHATASE 256 u/l (38-126); ANION GAP 10 (6-22 (CALC)); BILIRUBIN, TOTAL 0.3 mg/dL (0.2-1.3); BUN 13 mg/dL (8-23); BUN/CREATININE RATIO 10 (12-20 (CALC)); CARBON DIOXIDE 21 mmol/l (22-30); CHLORIDE 120 mmol/l (95-108); CREATININE 1.3 mg/dL (0.7-1.3); GFR FOR AFR.AMER. > 60 ML/MIN (>=60 (CALC)); GFR OTHER RACES 56 ML/MIN (>=60 (CALC)); SGOT/AST 35 u/l (19-48); SODIUM 148 mmol/l (137-146); TOTAL PROTEIN 6.1 g/dL (6.3-8.2)
[2022-09-17 06:48] LABS: TSH, 3RD GENERATION 1.34 uIU/mL (0.47 - 4.68)
[2022-09-18] VITALS (468 sets, daily range): BP systolic 58–125; BP diastolic 35–74
[2022-09-18 05:48] LABS: HEMATOCRIT 29.1 % (39.0-50.0); HEMOGLOBIN 9.3 g/dl (14.0-18.0); MEAN CELL VOLUME 90.9 fL CALC (80.0-100.0); MEAN CORPUSCULAR HGB 29.1 pG CALC (26.0-32.0); RED BLOOD COUNT 3.2 mill/uL (4.70-6.10); RED CELL DISTRI WIDTH 19.4 % (11.5-15.5)
[2022-09-18 05:57] LABS: ALBUMIN 2.5 g/dL (3.2-5.0); ALKALINE PHOSPHATASE 222 u/l (38-126); ANION GAP 11 (6-22 (CALC)); BUN 11 mg/dL (8-23); BUN/CREATININE RATIO 8 (12-20 (CALC)); CARBON DIOXIDE 20 mmol/l (22-30); CHLORIDE 120 mmol/l (95-108); CREATININE 1.3 mg/dL (0.7-1.3); GFR FOR AFR.AMER. > 60 ML/MIN (>=60 (CALC)); GFR OTHER RACES 56 ML/MIN (>=60 (CALC)); MAGNESIUM 1.8 mg/dL (1.6-2.3); POTASSIUM 3.3 mmol/l (3.5-5.1); SGOT/AST 28 u/l (19-48); SODIUM 148 mmol/l (137-146); TOTAL PROTEIN 5.8 g/dL (6.3-8.2)
[2022-09-18 06:06] LABS: BILIRUBIN, TOTAL 0.1 mg/dL (0.2-1.3)
[2022-09-19] VITALS (101 sets, daily range): BP systolic 87–127; BP diastolic 45–79
[2022-09-19 06:27] LABS: HEMATOCRIT 27.5 % (39.0-50.0); HEMOGLOBIN 8.9 g/dl (14.0-18.0); MEAN CELL VOLUME 89.3 fL CALC (80.0-100.0); MEAN CORPUSCULAR HGB 28.9 pG CALC (26.0-32.0); MEAN CORPUSCULAR HGB CONC 32.4 g/dL CAL (32.0-36.0); RED BLOOD COUNT 3.08 mill/uL (4.70-6.10); RED CELL DISTRI WIDTH 19.1 % (11.5-15.5)
[2022-09-19 06:38] LABS: ALBUMIN 2.4 g/dL (3.2-5.0); CREATININE 1.6 mg/dL (0.7-1.3); MAGNESIUM 1.7 mg/dL (1.6-2.3); POTASSIUM 3.3 mmol/l (3.5-5.1); TOTAL PROTEIN 5.8 g/dL (6.3-8.2)
[2022-09-19 06:39] LABS: BILIRUBIN, TOTAL 0.3 mg/dL (0.2-1.3)
== END 2022-09-19 18:30 | disposition short-term general hospital (02) | DRG 871 ==
LOC: ED 08:56 → ICU 10:33 → ED-I 10:33 → MS2 09-15 14:32 → ED-I 09-16 00:57 → ICU 09-17 01:40
PROVIDERS: Family Medicine; Internal Medicine; ADMIT Internal Medicine; ATTEND Internal Medicine
PROC: 02HV33Z Insertion of Infusion Device into Superior Vena Cava, Percutaneous Approach (ICD-10-PCS; principal; 2022-09-12)
PROC: 3E043XZ Introduction of Vasopressor into Central Vein, Percutaneous Approach (ICD-10-PCS; 2022-09-12)
PROC: 0T9B70Z Drainage of Bladder with Drainage Device, Via Natural or Artificial Opening (ICD-10-PCS; 2022-09-13)
PROC: 0BH18EZ Insertion of Endotracheal Airway into Trachea, Via Natural or Artificial Opening Endoscopic (ICD-10-PCS; 2022-09-16)
PROC: 5A1945Z Respiratory Ventilation, 24-96 Consecutive Hours (ICD-10-PCS; 2022-09-16)
PROC: 5A12012 Performance of Cardiac Output, Single, Manual (ICD-10-PCS; 2022-09-16)
DX: A41.9 Sepsis, unspecified organism (principal); I46.9 Cardiac arrest, cause unspecified; R65.21 Severe sepsis with septic shock; J80 Acute respiratory distress syndrome; J18.9 Pneumonia, unspecified organism; N17.9 Acute kidney failure, unspecified; E87.20 Acidosis, unspecified; F72 Severe intellectual disabilities; E87.0 Hyperosmolality and hypernatremia; E86.0 Dehydration; I10 Essential (primary) hypertension; R00.1 Bradycardia, unspecified; E87.6 Hypokalemia; K59.09 Other constipation; G40.909 Epilepsy, unspecified, not intractable, without status epilepticus; K21.9 Gastro-esophageal reflux disease without esophagitis; R62.7 Adult failure to thrive; Z68.23 Body mass index [BMI] 23.0-23.9, adult; Z20.822 Contact with and (suspected) exposure to COVID-19
CPT/HCPCS: J1650; S0164